=== PATIENT | female | born 1970 | race Caucasian/White ===

== ENCOUNTER 2018-02-14 20:33 | Emergency (ER) | payer SELFPAY ==
[2018-02-14 20:48] VITALS: BP 168/94; PULSE 105; TEMP 98.1; BMI 25.0
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
[2018-02-14] MEDS ORDERED: IBUPROFEN 600 MG TABLET (FP) PO ONE ×2 (21:54→21:55)
== END 2018-02-14 22:16 | disposition home or self-care (01) ==
LOC: JERFT 20:33
PROC: 2W3RX1Z Immobilization of Left Lower Leg using Splint (ICD-10-PCS; principal; 2018-02-14)
DX: M25.562 Pain in left knee (principal); W23.0XXA Caught, crushed, jammed, or pinched between moving objects, initial encounter; Y93.89 Activity, other specified; Y92.9 Unspecified place or not applicable; F17.210 Nicotine dependence, cigarettes, uncomplicated
CPT/HCPCS: 73562-TC-LT-FY; 99281-25

== ENCOUNTER 2019-03-11 13:50 | Emergency (ER) | payer OTHER ==
[2019-03-11 13:54] VITALS: BMI 27.4
--- NOTE | 2019-03-11 14:31 | PDOC ---
History of Present Illness - General Chief Complaint: Cold Symptoms Stated Complaint: COLD SYMPTOMS Time Seen by Provider: 03/11/19 13:56 History Source: Patient Exam Limitations: No Limitations - History of Present Illness Initial Comments: 03/11/19 14:26 Patient is a 48-year-old female who presents to the ED with complaint of 12 days of flulike symptoms. She states she has nasal congestion, body aches, cough, intermittent fevers with a T-max of 104F. She denies any shortness of breath. The patient is a smoker. She denies any past medical history. She has tried Tylenol, Excedrin, TheraFlu without much relief. She denies any known sick contacts. Past History - Past Medical History Allergies/Adverse Reactions: Allergies Allergy/AdvReac Type Severity Reaction Status Date / Time No Known Allergies Allergy Verified 03/11/19 13:54 Home Medications: Ambulatory Orders Ibuprofen [Motrin -] 600 mg PO TID PRN #21 tablet 03/11/19 COPD: No - Psycho Social/Smoking Cessation Hx Smoking History: Current every day smoker Have you smoked in the past 12 months: No Information on smoking cessation initiated: No Hx Alcohol Use: No Drug/Substance Use Hx: No Review of Systems - Review of Systems Comments:: 03/11/19 14:28 - Review of Systems Able to Perform ROS?: Yes Constitutional: No: Loss of Appetite, Night Sweats, Weakness; + intermittent fevers, + chills HEENTM: No: Eye Pain, Vision changes, Ear Pain, , Throat Swelling, Mouth Pain, Difficulty Swallowing; + Throat Pain Respiratory: No: , Shortness of Breath, Wheezing; + Sputum Production, +Cough Cardiac (ROS): No: Chest Pain, Chest Tightness, Palpitations, Irregular Heart Beat, Edema ABD/GI: No: Nausea, Vomiting, Abdominal Pain, Diarrhea Musculoskeletal: No: Back Pain, Joint Pain, Muscle Weakness, Neck Pain; + Muscle aches Integumentary: No: Lesions, Rash Neurological: No: Headache, Numbness, Tingling, Weakness, Speech Difficulties *Physical Exam - Vital Signs Last Vital Signs Temp Pulse Resp BP Pulse Ox 97.5 F L 80 18 174/87 H 99 03/11/19 13:52 03/11/19 13:52 03/11/19 13:52 03/11/19 13:52 03/11/19 13:52 - Physical Exam 03/11/19 14:31 - Physical Exam General Appearance: Nourished, Appropriately Dressed; Mild Distress HEENT: EOMI, Normal Voice, TMs Normal, Hearing Grossly Normal, No TM Bulging. No Muffled/Hoarse voice, No Tonsillar Exudate, No TM Dullness, No TM Erythema; There is moderate pharyngeal and tonsillar erythema without exudates. Neck: Supple, No Lymphadenopathy (R), No Lymphadenopathy (L), No Rigidity, No Decreased range of motion Respiratory/Chest: No Respiratory Distress, No Accessory Muscle Use; There is rhonchi apprecaited to the right base Cardiovascular: Regular Rhythm, Regular Rate, S1, S2 Gastrointestinal/Abdominal: Normal Bowel Sounds, Soft. Non-tender Musculoskeletal: Normal Inspection. No Decreased Range of Motion Extremity: Normal Capillary Refill, Normal Inspection Integumentary: Normal Color, Dry. No Rash Neurologic: computer game programmer II-XII NML intact, Fully Oriented, Alert, Normal Mood/Affect, Normal Response ED Treatment Course - ADDITIONAL ORDERS Additional order review: 03/11/19 14:46 Laboratory Tests 03/11/19 03/11/19 14:11 14:11 Influenza A (Rapid) Negative Influenza B (Rapid) Negative Group A Strep Rapid Negative - RADIOLOGY Radiology Studies Ordered: Category Date Time Status CHEST PA & LAT [RAD] Stat Radiology 03/11/19 14:12 Ordered Medical Decision Making - Medical Decision Making I have made the patient aware that her strep and flu swabs are negative. The patient has a URI. I have ordered some Motrin for her while in the ED and we will send Motrin to her pharmacy as well. She should follow-up with her primary doctor within 1 to 2 days for repeat evaluation. She understands and agrees with treatment plan as she is stable for discharge. 03/11/19 14:50 Discharge - Discharge Information Problems reviewed: Yes Clinical Impression/Diagnosis: URI, acute Condition: Stable Disposition: HOME - Additional Discharge Information Prescriptions: Ibuprofen [Motrin -] 600 mg PO TID PRN #21 tablet PRN Reason: Fever - Follow up/Referral Referrals: Jo Martinez [Primary Care Provider] - - Patient Discharge Instructions Patient Printed Discharge Instructions: DI for Viral Upper Respiratory Infection -- Adult Additional Instructions: Get plenty of rest and drink plenty of fluids. Take Tylenol or Motrin for fever and body aches. Follow-up with your primary doctor within 1 to 2 days for repeat evaluation. Return for high fevers, shaking chills, profuse vomiting or any other worsening symptoms. - Post Discharge Activity Work/Back to School Note: Back to Work
[2019-03-11] MEDS ORDERED: IBUPROFEN 600 MG TABLET (FP) PO ONE ×2 (14:45→14:56)
[2019-03-11 14:50] VITALS: BP 136/89; PULSE 83; TEMP 97.8
== END 2019-03-11 15:02 | disposition home or self-care (01) ==
LOC: JERFT 13:50
DX: J06.9 Acute upper respiratory infection, unspecified (principal); B97.89 Other viral agents as the cause of diseases classified elsewhere; F17.210 Nicotine dependence, cigarettes, uncomplicated
CPT/HCPCS: 71046-TC-FY; 87070; 87804; 87880; 99282-25

== ENCOUNTER 2020-07-10 19:47 | Emergency (ER) | payer OTHER ==
[2020-07-10 20:03] VITALS: BP 156/84; PULSE 90; TEMP 98.5; BMI 27.4
[2020-07-10] MEDS ORDERED: LIDOCAINE PATCH REMOVAL MC SCH (22:00)
[2020-07-10] MEDS ORDERED: ACETAMINOPHEN 500 MG TABLET (FP) PO ONE (23:59)
[2020-07-10] MEDS ORDERED: LIDOCAINE 5% TOPICAL PATCH TP ONE (23:59)
[2020-07-11] MEDS ORDERED: METHOCARBAMOL 750 MG TAB PO ONE (00:07)
[2020-07-11] MEDS ORDERED: METHOCARBAMOL 500 MG TABLET ONE (00:17)
[2020-07-11] MEDS ORDERED: LIDOCAINE 5% TOPICAL PATCH ONE (00:17)
[2020-07-11] MEDS ORDERED: ACETAMINOPHEN 500 MG TABLET (FP) ONE (00:20)
== END 2020-07-11 01:56 | disposition home or self-care (01) ==
LOC: JER 19:47
DX: M54.5 Low back pain (principal)
CPT/HCPCS: 72070-TC-FY; 72100-TC-FY; 99284-25

== ENCOUNTER 2021-03-02 04:43 | Day surgery (SDC) | payer OTHER ==
[2021-02-26 11:44] VITALS: BMI 29.3
[2021-03-02] MEDS ORDERED: ISOSULFAN BLUE 50 MG/5 ML VIAL SQ ONE (10:51)
[2021-03-02] MEDS ORDERED: LIDOCAINE HCL 1%, 10 MG/ML (20ML VIAL) ONE (10:52)
[2021-03-02] MEDS ORDERED: oxyCODONE HCL 5 MG TABLET PO PRN (11:29)
[2021-03-02] MEDS ORDERED: PROMETHAZINE HCL 25 MG/1 ML VIAL IVPUSH PRN (11:29)
[2021-03-02] MEDS ORDERED: ONDANSETRON 4 MG/2 ML VIAL IVPUSH PRN (11:29)
[2021-03-02] MEDS ORDERED: LACTATED RINGERS SOLUTION 1,000 ML IV SCH (11:30)
[2021-03-02] MEDS ORDERED: PROPOFOL 20 ML ONE ×3 (12:21→13:58)
[2021-03-02] MEDS ORDERED: MIDAZOLAM HCL 2 MG/2 ML SINGLE DOSE VIAL ONE (12:21)
[2021-03-02] MEDS ORDERED: GLYCOPYRROLATE 0.2 MG/1 ML VIAL ONE (12:21)
[2021-03-02] MEDS ORDERED: LIDOCAINE HCL/PF 2% SDV 5ML VIAL ONE (12:30)
[2021-03-02] MEDS ORDERED: SODIUM CHLORIDE 0.9% P/F 10 ML VIAL IJ ONE (12:31)
[2021-03-02] MEDS ORDERED: ceFAZolin SODIUM 1 GM VIAL ONE (12:31)
[2021-03-02] MEDS ORDERED: ceFAZolin SODIUM 1 GM VIAL IVPB ONE (12:35)
[2021-03-02] MEDS ORDERED: DEXAMETHASONE SOD PHOSPHATE 4 MG/1 ML VIAL ONE ×2 (12:37)
[2021-03-02] MEDS ORDERED: ONDANSETRON 4 MG/2 ML VIAL ONE (12:37)
[2021-03-02] MEDS ORDERED: KETOROLAC TROMETHAMINE 30 MG/1 ML VIAL ONE (13:04)
[2021-03-02] MEDS ORDERED: METOPROLOL TARTRATE 5 MG/5 ML VIAL ONE (13:11)
[2021-03-02] MEDS ORDERED: oxyCODONE HCL 5 MG TABLET ONE (17:51)
[2021-03-02] MEDS ORDERED: oxyCODONE HCL 5 MG TABLET PO ONE (17:52)
[2021-03-02 18:39] VITALS: BP 128/69; PULSE 74; TEMP 97.7
== END 2021-03-02 18:40 | disposition home or self-care (01) ==
LOC: JASU-SURG 04:43
PROVIDERS: ATTEND Surgery
PROC: 0HBT0ZZ Excision of Right Breast, Open Approach (ICD-10-PCS; principal; 2021-03-02 11:00)
DX: C50.311 Malignant neoplasm of lower-inner quadrant of right female breast (principal); C77.3 Secondary and unspecified malignant neoplasm of axilla and upper limb lymph nodes; Z17.0 Estrogen receptor positive status [ER+]
CPT/HCPCS: 78195-TC; 81025; 88307-TC; 94760; A9541

== ENCOUNTER 2021-05-07 07:01 | Day surgery (SDC) | payer OTHER ==
[2021-05-07 12:49] LABS: BASO % 0.8 % (0-2.0); EOS % 4.5 % (0-4.5); HEMOGLOBIN 12.1 GM/dL (10.7-15.3); LYMPH % 20.3 % (8-40); MCH 28.9 pg (25.7-33.7); MCHC 32.6 g/dl (32.0-36.0); MEAN CELL VOLUME 88.6 fl (80-96); MEAN PLT VOLUME 8.5 fl (7.5-11.1); MONO % 8.3 % (3.8-10.2); NEUT % 66.1 % (42.8-82.8); PLATELET COUNT 287 10^3/uL (134-434); RBC 4.18 M/mm3 (3.60-5.2); RDW 14.2 % (11.6-15.6); WHITE BLOOD COUNT 6.4 K/mm3 (4.0-10.0)
[2021-05-07] MEDS ORDERED: LIDOCAINE 1% P/F 10 MG/ML VIAL ID ONE (13:00)
[2021-05-07] MEDS ORDERED: FERRIC CARBOXYMALTOSE 750 MG in SODIUM CHLORIDE 250 ML IVPB ONE (13:00)
[2021-05-07] MEDS ORDERED: GOSERELIN ACETATE 3.6 MG IMPLANT SYRINGE SQ ONE (13:00)
[2021-05-07 13:02] VITALS: TEMP 98.6
[2021-05-07 13:17] LABS: CALCIUM 9.1 mg/dL (8.5-10.1)
[2021-05-07 13:18] LABS: ALBUMIN 3.8 g/dl (3.4-5.0); BLOOD UREA NITROGEN 15.6 mg/dL (7-18)
[2021-05-07 13:21] LABS: CREATININE 0.7 mg/dL (0.55-1.3)
[2021-05-07 13:22] LABS: BILIRUBIN,TOTAL 0.3 mg/dL (0.2-1); TOT PROT 7.1 g/dl (6.4-8.2)
[2021-05-07 16:56] VITALS: BP 131/79; PULSE 81
== END 2021-05-07 14:45 | disposition home or self-care (01) ==
LOC: JONCCHEMO 07:01
PROVIDERS: ATTEND Internal Medicine Hematology & Oncology
DX: Z51.11 Encounter for antineoplastic chemotherapy (principal); C50.811 Malignant neoplasm of overlapping sites of right female breast; C77.9 Secondary and unspecified malignant neoplasm of lymph node, unspecified
CPT/HCPCS: 36415; 80053; 84703; 85025; 96402; J1439; J9202

== ENCOUNTER 2021-05-14 08:06 | Day surgery (SDC) | payer OTHER ==
[2021-05-14] MEDS ORDERED: DEXAMETHASONE INJECTION 10 MG, DIPHENHYDRAMINE 25 MG in SODIUM CHLORIDE 100 ML IVPB ONE (09:30)
[2021-05-14] MEDS ORDERED: FAMOTIDINE 20 MG/50 ML IVPB 20 MG/50 ML MG IVPB ONE (09:30)
[2021-05-14 10:54] LABS: BASO % 0.6 % (0-2.0); EOS % 3.2 % (0-4.5); HEMATOCRIT 37.5 % (32.4-45.2); HEMOGLOBIN 12.4 GM/dL (10.7-15.3); LYMPH % 15.4 % (8-40); MCH 29.6 pg (25.7-33.7); MEAN CELL VOLUME 89.7 fl (80-96); MEAN PLT VOLUME 8.5 fl (7.5-11.1); NEUT % 72.8 % (42.8-82.8); PLATELET COUNT 254 10^3/uL (134-434); RBC 4.18 M/mm3 (3.60-5.2); RDW 14.8 % (11.6-15.6); WHITE BLOOD COUNT 7.5 K/mm3 (4.0-10.0)
[2021-05-14] MEDS ORDERED: FERRIC CARBOXYMALTOSE 750 MG in SODIUM CHLORIDE 250 ML IVPB ONE (11:15)
[2021-05-14 11:17] LABS: CALCIUM 8.8 mg/dL (8.5-10.1)
[2021-05-14 11:18] LABS: ALBUMIN 3.6 g/dl (3.4-5.0); BLOOD UREA NITROGEN 17.4 mg/dL (7-18)
[2021-05-14 11:21] LABS: CREATININE 0.7 mg/dL (0.55-1.3)
[2021-05-14 11:23] LABS: BILIRUBIN,TOTAL 0.2 mg/dL (0.2-1)
[2021-05-14 16:51] VITALS: PULSE 85; TEMP 98.2
[2021-05-14 16:58] VITALS: BP 118/80
== END 2021-05-14 12:05 | disposition home or self-care (01) ==
LOC: JONCCHEMO 08:06
PROVIDERS: ATTEND Internal Medicine Hematology & Oncology
PROC: 3E033GC Introduction of Other Therapeutic Substance into Peripheral Vein, Percutaneous Approach (ICD-10-PCS; principal; 2021-05-14)
DX: C50.911 Malignant neoplasm of unspecified site of right female breast (principal); C77.9 Secondary and unspecified malignant neoplasm of lymph node, unspecified; Z76.89 Persons encountering health services in other specified circumstances
CPT/HCPCS: 36415; 80053; 85025; 96365; J1439

== ENCOUNTER 2021-05-20 04:37 | Day surgery (SDC) | payer OTHER ==
[2021-05-18 11:55] VITALS: BMI 31.4
[2021-05-20] MEDS ORDERED: MIDAZOLAM HCL 2 MG/2 ML SINGLE DOSE VIAL ONE ×2 (10:46→11:18)
[2021-05-20] MEDS ORDERED: SODIUM CHLORIDE 500 ML IV SCH (10:50)
[2021-05-20] MEDS ORDERED: MIDAZOLAM HCL 2 MG/2 ML SINGLE DOSE VIAL IVPUSH ONE ×3 (11:10→11:30)
[2021-05-20] MEDS ORDERED: ACETAMINOPHEN 1000 MG/100 ML BAG IVPB ONE (13:05)
[2021-05-20 14:10] VITALS: BP 121/68; PULSE 81; TEMP 98.1
== END 2021-05-20 14:20 | disposition home or self-care (01) ==
LOC: JRADIR 04:37
PROVIDERS: ATTEND Internal Medicine Hematology & Oncology
PROC: 02HV33Z Insertion of Infusion Device into Superior Vena Cava, Percutaneous Approach (ICD-10-PCS; principal; 2021-05-20)
PROC: B518ZZA Fluoroscopy of Superior Vena Cava, Guidance (ICD-10-PCS; 2021-05-20)
DX: C50.911 Malignant neoplasm of unspecified site of right female breast (principal)
CPT/HCPCS: 36561; C1788; 81025

== ENCOUNTER 2021-05-21 07:58 | Day surgery (SDC) | payer OTHER ==
[2021-05-21] MEDS ORDERED: FAMOTIDINE 20 MG/50 ML IVPB 20 MG/50 ML MG IVPB ONE (10:30)
[2021-05-21] MEDS ORDERED: DEXAMETHASONE SODIUM PHOSPHATE 10 MG, DIPHENHYDRAMINE 25 MG in SODIUM CHLORIDE 100 ML IVPB ONE (10:30)
[2021-05-21] MEDS ORDERED: PACLITAXEL IVPB ONE (11:00)
[2021-05-21] MEDS ORDERED: SODIUM CHLORIDE IVPB ONE (11:00)
[2021-05-21 11:33] LABS: BASO % 1.1 % (0-2.0); EOS % 5.4 % (0-4.5); HEMATOCRIT 37.1 % (32.4-45.2); HEMOGLOBIN 12.3 GM/dL (10.7-15.3); LYMPH % 20.6 % (8-40); MCH 29.8 pg (25.7-33.7); MCHC 33.3 g/dl (32.0-36.0); MEAN CELL VOLUME 89.7 fl (80-96); MEAN PLT VOLUME 8.4 fl (7.5-11.1); MONO % 7.5 % (3.8-10.2); NEUT % 65.4 % (42.8-82.8); PLATELET COUNT 248 10^3/uL (134-434); RBC 4.14 M/mm3 (3.60-5.2); RDW 14.8 % (11.6-15.6); WHITE BLOOD COUNT 5.2 K/mm3 (4.0-10.0)
[2021-05-21] MEDS ORDERED: ONDANSETRON 4 MG/2 ML VIAL IVPB ONE (11:43)
[2021-05-21 11:56] LABS: CALCIUM 8.9 mg/dL (8.5-10.1)
[2021-05-21 11:57] LABS: ALBUMIN 3.7 g/dl (3.4-5.0); BLOOD UREA NITROGEN 12.6 mg/dL (7-18)
[2021-05-21 12:00] LABS: CREATININE 0.7 mg/dL (0.55-1.3)
[2021-05-21 12:01] LABS: BILIRUBIN,TOTAL 0.2 mg/dL (0.2-1)
[2021-05-21 12:02] LABS: TOT PROT 6.8 g/dl (6.4-8.2)
[2021-05-21 16:03] VITALS: TEMP 98.1
[2021-05-21] MEDS ORDERED: PORTA CATH FLUSH 10 ML IVPUSH ONE (16:06)
[2021-05-21 17:04] VITALS: BP 142/82; PULSE 87
== END 2021-05-21 17:08 | disposition home or self-care (01) ==
LOC: JONCNONCHE 07:58
PROVIDERS: ATTEND Internal Medicine Hematology & Oncology
DX: Z51.11 Encounter for antineoplastic chemotherapy (principal); C50.911 Malignant neoplasm of unspecified site of right female breast
CPT/HCPCS: 36415; 80053; 85025; 96367; 96413

== ENCOUNTER 2021-05-25 15:15 | Emergency (ER) | payer OTHER ==
[2021-05-25 15:39] VITALS: BP 123/78; PULSE 97; TEMP 97.9; BMI 31.4
[2021-05-25 17:22] LABS: BASO % 0.7 % (0-2.0); EOS % 4.4 % (0-4.5); HEMOGLOBIN 12.2 GM/dL (10.7-15.3); LYMPH % 22.6 % (8-40); MCH 30.5 pg (25.7-33.7); MCHC 33.9 g/dl (32.0-36.0); MEAN CELL VOLUME 89.8 fl (80-96); MEAN PLT VOLUME 8.8 fl (7.5-11.1); MONO % 3.4 % (3.8-10.2); NEUT % 68.9 % (42.8-82.8); PLATELET COUNT 250 10^3/uL (134-434); RBC 4.01 M/mm3 (3.60-5.2); RDW 15.2 % (11.6-15.6); WHITE BLOOD COUNT 5.6 K/mm3 (4.0-10.0)
[2021-05-25 17:28] LABS: PROTHROMBIN TIME (PATIENT) 11.5 SEC (9.7-13.0)
[2021-05-25 17:31] LABS: ACTIVATED PTT 28.4 SECONDS (25.2-36.5)
[2021-05-25 17:46] LABS: ALBUMIN 3.7 g/dl (3.4-5.0); BLOOD UREA NITROGEN 16.2 mg/dL (7-18); MAGNESIUM 2.1 mg/dL (1.8-2.4)
[2021-05-25 17:49] LABS: CREATININE 0.7 mg/dL (0.55-1.3)
[2021-05-25 17:51] LABS: BILIRUBIN,TOTAL 0.4 mg/dL (0.2-1); TOT PROT 6.6 g/dl (6.4-8.2)
[2021-05-25] MEDS ORDERED: SODIUM CHLORIDE 0.9% 500 ML INFUS.BAG IV ONE (18:05)
== END 2021-05-25 20:33 | disposition home or self-care (01) ==
LOC: JER 15:15
DX: R06.02 Shortness of breath (principal)
CPT/HCPCS: 36415; 71275-TC; 80053; 83735; 84484; 84703; 85025; 85610; 85730; 86850; 86900; 86901; 93005; 93010; 99285-25; Q9967

== ENCOUNTER 2021-05-28 06:57 | Day surgery (SDC) | payer OTHER ==
[2021-05-28] MEDS ORDERED: DEXAMETHASONE SODIUM PHOSPHATE 10 MG, DIPHENHYDRAMINE 25 MG in SODIUM CHLORIDE 100 ML IVPB ONE (10:30)
[2021-05-28] MEDS ORDERED: FAMOTIDINE 20 MG/50 ML IVPB 20 MG/50 ML MG IVPB ONE (10:30)
[2021-05-28 10:34] LABS: BASO % 0.9 % (0-2.0); EOS % 5.5 % (0-4.5); HEMATOCRIT 33.3 % (32.4-45.2); HEMOGLOBIN 11.5 GM/dL (10.7-15.3); LYMPH % 26.6 % (8-40); MCH 31.2 pg (25.7-33.7); MCHC 34.7 g/dl (32.0-36.0); MEAN CELL VOLUME 89.9 fl (80-96); MEAN PLT VOLUME 7.9 fl (7.5-11.1); MONO % 7.1 % (3.8-10.2); NEUT % 59.9 % (42.8-82.8); PLATELET COUNT 260 10^3/uL (134-434); RDW 15.6 % (11.6-15.6); WHITE BLOOD COUNT 5.2 K/mm3 (4.0-10.0)
[2021-05-28 10:52] LABS: ALBUMIN 3.4 g/dl (3.4-5.0); BLOOD UREA NITROGEN 18.4 mg/dL (7-18); CALCIUM 8.6 mg/dL (8.5-10.1)
[2021-05-28 10:56] LABS: CREATININE 0.8 mg/dL (0.55-1.3)
[2021-05-28 10:57] LABS: BILIRUBIN,TOTAL 0.2 mg/dL (0.2-1); TOT PROT 6.3 g/dl (6.4-8.2)
[2021-05-28] MEDS ORDERED: SODIUM CHLORIDE IVPB ONE (11:00)
[2021-05-28] MEDS ORDERED: PACLITAXEL IVPB ONE (11:00)
[2021-05-28 16:12] VITALS: TEMP 98.2
[2021-05-28 16:49] VITALS: BP 128/70; PULSE 97
== END 2021-05-28 15:30 | disposition home or self-care (01) ==
LOC: JONCCHEMO 06:57
PROVIDERS: ATTEND Internal Medicine Hematology & Oncology
DX: Z51.11 Encounter for antineoplastic chemotherapy (principal); C50.919 Malignant neoplasm of unspecified site of unspecified female breast
CPT/HCPCS: 36415; 80053; 85025; 96367; 96413

== ENCOUNTER 2021-06-04 07:23 | Day surgery (SDC) | payer OTHER ==
[2021-06-04] MEDS ORDERED: DEXAMETHASONE SODIUM PHOSPHATE 10 MG, DIPHENHYDRAMINE 25 MG in SODIUM CHLORIDE 100 ML IVPB ONE (10:30)
[2021-06-04] MEDS ORDERED: FAMOTIDINE 20 MG/50 ML IVPB 20 MG/50 ML MG IVPB ONE (10:30)
[2021-06-04] MEDS ORDERED: SODIUM CHLORIDE IVPB ONE (11:00)
[2021-06-04] MEDS ORDERED: PACLITAXEL IVPB ONE (11:00)
[2021-06-04 13:06] LABS: BASO % 1.2 % (0-2.0); EOS % 3.9 % (0-4.5); HEMATOCRIT 36.9 % (32.4-45.2); HEMOGLOBIN 12.6 GM/dL (10.7-15.3); LYMPH % 27.7 % (8-40); MCH 30.7 pg (25.7-33.7); MCHC 34.3 g/dl (32.0-36.0); MEAN CELL VOLUME 89.5 fl (80-96); MEAN PLT VOLUME 7.7 fl (7.5-11.1); MONO % 8.9 % (3.8-10.2); NEUT % 58.3 % (42.8-82.8); PLATELET COUNT 308 10^3/uL (134-434); RBC 4.12 M/mm3 (3.60-5.2); RDW 16.1 % (11.6-15.6); WHITE BLOOD COUNT 4.1 K/mm3 (4.0-10.0)
[2021-06-04 13:24] LABS: ALBUMIN 3.9 g/dl (3.4-5.0); BLOOD UREA NITROGEN 17.8 mg/dL (7-18); CALCIUM 9.3 mg/dL (8.5-10.1)
[2021-06-04 13:27] LABS: CREATININE 0.9 mg/dL (0.55-1.3)
[2021-06-04 13:29] LABS: BILIRUBIN,TOTAL 0.4 mg/dL (0.2-1); TOT PROT 7.2 g/dl (6.4-8.2)
[2021-06-04] MEDS ORDERED: PORTA CATH FLUSH 10 ML IVPUSH ONE (15:29)
[2021-06-04 15:30] VITALS: TEMP 98.3
[2021-06-04 16:19] VITALS: BP 144/84; PULSE 103
== END 2021-06-04 16:35 | disposition home or self-care (01) ==
LOC: JONCCHEMO 07:23
PROVIDERS: ATTEND Internal Medicine Hematology & Oncology
PROC: 3E04305 Introduction of Other Antineoplastic into Central Vein, Percutaneous Approach (ICD-10-PCS; principal; 2021-06-04)
PROC: 3E043GC Introduction of Other Therapeutic Substance into Central Vein, Percutaneous Approach (ICD-10-PCS; 2021-06-04)
DX: Z51.11 Encounter for antineoplastic chemotherapy (principal); C50.919 Malignant neoplasm of unspecified site of unspecified female breast
CPT/HCPCS: 36415; 80053; 85025; 96367; 96413

== ENCOUNTER 2021-06-11 08:27 | Day surgery (SDC) | payer OTHER ==
[2021-06-11] MEDS ORDERED: FAMOTIDINE 20 MG/50 ML IVPB 20 MG/50 ML MG IVPB ONE (09:30)
[2021-06-11] MEDS ORDERED: DEXAMETHASONE SODIUM PHOSPHATE 4 MG, DIPHENHYDRAMINE 25 MG in SODIUM CHLORIDE 100 ML IVPB ONE (09:30)
[2021-06-11 09:48] LABS: BASO % 0.6 % (0-2.0); EOS % 3.3 % (0-4.5); HEMATOCRIT 36.4 % (32.4-45.2); HEMOGLOBIN 12.2 GM/dL (10.7-15.3); LYMPH % 25.7 % (8-40); MCH 30.5 pg (25.7-33.7); MCHC 33.5 g/dl (32.0-36.0); MEAN PLT VOLUME 8.5 fl (7.5-11.1); MONO % 5.4 % (3.8-10.2); PLATELET COUNT 289 10^3/uL (134-434); RDW 16.1 % (11.6-15.6); WHITE BLOOD COUNT 4.9 K/mm3 (4.0-10.0)
[2021-06-11] MEDS ORDERED: SODIUM CHLORIDE IVPB ONE (10:00)
[2021-06-11] MEDS ORDERED: PACLITAXEL IVPB ONE (10:00)
[2021-06-11 10:04] LABS: CALCIUM 9.1 mg/dL (8.5-10.1)
[2021-06-11 10:05] LABS: ALBUMIN 3.7 g/dl (3.4-5.0); BLOOD UREA NITROGEN 14.9 mg/dL (7-18)
[2021-06-11 10:08] LABS: CREATININE 0.7 mg/dL (0.55-1.3)
[2021-06-11 10:09] LABS: BILIRUBIN,TOTAL 0.3 mg/dL (0.2-1); TOT PROT 6.8 g/dl (6.4-8.2)
[2021-06-11 10:24] VITALS: TEMP 98.2
[2021-06-11] MEDS ORDERED: LIDOCAINE HCL 1%, 10 MG/ML (20ML VIAL) ID ONE (10:30)
[2021-06-11] MEDS ORDERED: GOSERELIN ACETATE 3.6 MG IMPLANT SYRINGE SQ ONE (10:30)
[2021-06-11] MEDS ORDERED: PORTA CATH FLUSH 10 ML IVPUSH PRN (12:16)
[2021-06-11 15:07] VITALS: BP 132/80; PULSE 98
== END 2021-06-11 13:30 | disposition home or self-care (01) ==
LOC: JONCCHEMO 08:27
PROVIDERS: ATTEND Internal Medicine Hematology & Oncology
DX: Z51.11 Encounter for antineoplastic chemotherapy (principal); C50.911 Malignant neoplasm of unspecified site of right female breast; C77.9 Secondary and unspecified malignant neoplasm of lymph node, unspecified; C79.2 Secondary malignant neoplasm of skin
CPT/HCPCS: 36415; 80053; 85025; 96367; 96402; 96413; J9202

== ENCOUNTER 2021-06-18 06:53 | Day surgery (SDC) | payer OTHER ==
[2021-06-18] MEDS ORDERED: DEXAMETHASONE SODIUM PHOSPHATE 4 MG, DIPHENHYDRAMINE 25 MG in SODIUM CHLORIDE 100 ML IVPB ONE (09:30)
[2021-06-18] MEDS ORDERED: FAMOTIDINE 20 MG/50 ML IVPB 20 MG/50 ML MG IVPB ONE (09:30)
[2021-06-18] MEDS ORDERED: PACLITAXEL IVPB ONE (10:00)
[2021-06-18] MEDS ORDERED: SODIUM CHLORIDE IVPB ONE (10:00)
[2021-06-18 10:56] LABS: BASO % 0.9 % (0-2.0); EOS % 2.5 % (0-4.5); HEMATOCRIT 36.2 % (32.4-45.2); HEMOGLOBIN 12.3 GM/dL (10.7-15.3); MCH 30.9 pg (25.7-33.7); MEAN CELL VOLUME 90.9 fl (80-96); MONO % 8.4 % (3.8-10.2); NEUT % 66.2 % (42.8-82.8); PLATELET COUNT 287 10^3/uL (134-434); RBC 3.98 M/mm3 (3.60-5.2); RDW 16.8 % (11.6-15.6); WHITE BLOOD COUNT 4.8 K/mm3 (4.0-10.0)
[2021-06-18 11:18] LABS: BLOOD UREA NITROGEN 19.2 mg/dL (7-18); CALCIUM 9.1 mg/dL (8.5-10.1)
[2021-06-18 11:19] LABS: ALBUMIN 3.7 g/dl (3.4-5.0)
[2021-06-18 11:21] LABS: BILIRUBIN,DIRECT 0.1 mg/dL (0.0-0.2); CREATININE 0.8 mg/dL (0.55-1.3)
[2021-06-18 11:23] LABS: BILIRUBIN,TOTAL 0.2 mg/dL (0.2-1)
[2021-06-18 17:09] VITALS: BP 126/77; PULSE 97; TEMP 98.2
== END 2021-06-18 14:30 | disposition home or self-care (01) ==
LOC: JONCCHEMO 06:53
PROVIDERS: ATTEND Internal Medicine Hematology & Oncology
DX: Z51.11 Encounter for antineoplastic chemotherapy (principal); C50.911 Malignant neoplasm of unspecified site of right female breast; C77.9 Secondary and unspecified malignant neoplasm of lymph node, unspecified; C79.2 Secondary malignant neoplasm of skin
CPT/HCPCS: 36415; 80048; 80076; 83735; 85025; 96367; 96413

== ENCOUNTER 2021-06-25 07:04 | Day surgery (SDC) | payer OTHER ==
[2021-06-25] MEDS ORDERED: FAMOTIDINE 20 MG/50 ML IVPB 20 MG/50 ML MG IVPB ONE (09:30)
[2021-06-25] MEDS ORDERED: DEXAMETHASONE SODIUM PHOSPHATE 4 MG, DIPHENHYDRAMINE 25 MG in SODIUM CHLORIDE 100 ML IVPB ONE (09:30)
[2021-06-25] MEDS ORDERED: PACLITAXEL IVPB ONE (10:00)
[2021-06-25] MEDS ORDERED: SODIUM CHLORIDE IVPB ONE (10:00)
[2021-06-25 10:45] LABS: BASO % 0.8 % (0-2.0); EOS % 2.6 % (0-4.5); HEMATOCRIT 34.9 % (32.4-45.2); HEMOGLOBIN 11.7 GM/dL (10.7-15.3); LYMPH % 20.6 % (8-40); MCH 30.8 pg (25.7-33.7); MCHC 33.5 g/dl (32.0-36.0); MEAN CELL VOLUME 91.8 fl (80-96); MEAN PLT VOLUME 8.4 fl (7.5-11.1); MONO % 5.9 % (3.8-10.2); NEUT % 70.1 % (42.8-82.8); PLATELET COUNT 283 10^3/uL (134-434); RBC 3.81 M/mm3 (3.60-5.2); RDW 16.1 % (11.6-15.6); WHITE BLOOD COUNT 5.6 K/mm3 (4.0-10.0)
[2021-06-25 11:06] LABS: ALBUMIN 3.6 g/dl (3.4-5.0); CALCIUM 9.1 mg/dL (8.5-10.1)
[2021-06-25 11:07] LABS: BLOOD UREA NITROGEN 18.6 mg/dL (7-18)
[2021-06-25 11:09] LABS: CREATININE 0.8 mg/dL (0.55-1.3)
[2021-06-25 11:11] LABS: BILIRUBIN,TOTAL 0.3 mg/dL (0.2-1); TOT PROT 6.6 g/dl (6.4-8.2)
[2021-06-25 18:20] VITALS: TEMP 98.4
[2021-06-25 18:24] VITALS: BP 138/78; PULSE 94
[2021-06-25] MEDS ORDERED: PORTA CATH FLUSH 10 ML IVPUSH PRN (18:26)
== END 2021-06-25 14:30 | disposition home or self-care (01) ==
LOC: JONCCHEMO 07:04
PROVIDERS: ATTEND Internal Medicine Hematology & Oncology
DX: Z51.11 Encounter for antineoplastic chemotherapy (principal); C50.911 Malignant neoplasm of unspecified site of right female breast; C77.9 Secondary and unspecified malignant neoplasm of lymph node, unspecified; C79.2 Secondary malignant neoplasm of skin
CPT/HCPCS: 36415; 80053; 85025; 96367; 96413

== ENCOUNTER 2021-07-02 07:20 | Day surgery (SDC) | payer OTHER ==
[2021-07-02] MEDS ORDERED: DEXAMETHASONE SODIUM PHOSPHATE 4 MG, DIPHENHYDRAMINE 25 MG in SODIUM CHLORIDE 100 ML IVPB ONE (09:30)
[2021-07-02] MEDS ORDERED: FAMOTIDINE 20 MG/50 ML IVPB 20 MG/50 ML MG IVPB ONE (09:30)
[2021-07-02] MEDS ORDERED: PACLITAXEL IVPB ONE (10:00)
[2021-07-02] MEDS ORDERED: SODIUM CHLORIDE IVPB ONE (10:00)
[2021-07-02 10:49] LABS: BASO % 0.7 % (0-2.0); EOS % 2.4 % (0-4.5); HEMATOCRIT 35.9 % (32.4-45.2); HEMOGLOBIN 12.2 GM/dL (10.7-15.3); LYMPH % 17.8 % (8-40); MCH 31.3 pg (25.7-33.7); MEAN CELL VOLUME 92.2 fl (80-96); MEAN PLT VOLUME 8.3 fl (7.5-11.1); MONO % 7.5 % (3.8-10.2); NEUT % 71.6 % (42.8-82.8); PLATELET COUNT 296 10^3/uL (134-434); RBC 3.89 M/mm3 (3.60-5.2); RDW 16.4 % (11.6-15.6); WHITE BLOOD COUNT 5.8 K/mm3 (4.0-10.0)
[2021-07-02 11:09] LABS: ALBUMIN 3.6 g/dl (3.4-5.0); BLOOD UREA NITROGEN 20.1 mg/dL (7-18); CALCIUM 9.2 mg/dL (8.5-10.1)
[2021-07-02 11:13] LABS: CREATININE 0.8 mg/dL (0.55-1.3)
[2021-07-02 11:14] LABS: BILIRUBIN,TOTAL 0.2 mg/dL (0.2-1); TOT PROT 6.7 g/dl (6.4-8.2)
[2021-07-02] MEDS ORDERED: ONDANSETRON 4 MG/2 ML VIAL IVPB ONE (11:48)
[2021-07-02] MEDS ORDERED: ONDANSETRON INJECTION 8 MG in SODIUM CHLORIDE 50 ML IVPB ONE (12:00)
[2021-07-02 17:58] VITALS: TEMP 98.3
[2021-07-02 18:02] VITALS: BP 132/76; PULSE 93
[2021-07-02] MEDS ORDERED: PORTA CATH FLUSH 10 ML IVPUSH PRN (18:02)
== END 2021-07-02 15:30 | disposition home or self-care (01) ==
LOC: JONCCHEMO 07:20
PROVIDERS: ATTEND Internal Medicine Hematology & Oncology
DX: Z51.11 Encounter for antineoplastic chemotherapy (principal); C50.911 Malignant neoplasm of unspecified site of right female breast; C77.9 Secondary and unspecified malignant neoplasm of lymph node, unspecified; C79.2 Secondary malignant neoplasm of skin
CPT/HCPCS: 36415; 80053; 85025; 96367; 96375; 96413; J2405

== ENCOUNTER 2021-07-09 07:09 | Day surgery (SDC) | payer OTHER ==
[2021-07-09] MEDS ORDERED: DEXAMETHASONE SODIUM PHOSPHATE 4 MG, DIPHENHYDRAMINE 25 MG in SODIUM CHLORIDE 100 ML IVPB ONE (10:00)
[2021-07-09] MEDS ORDERED: FAMOTIDINE 20 MG/50 ML IVPB 20 MG/50 ML MG IVPB ONE (10:00)
[2021-07-09 10:17] LABS: BASO % 0.7 % (0-2.0); EOS % 2.1 % (0-4.5); HEMATOCRIT 34.4 % (32.4-45.2); HEMOGLOBIN 11.9 GM/dL (10.7-15.3); LYMPH % 17.5 % (8-40); MCH 31.9 pg (25.7-33.7); MCHC 34.6 g/dl (32.0-36.0); MEAN CELL VOLUME 92.3 fl (80-96); MEAN PLT VOLUME 8.2 fl (7.5-11.1); MONO % 7.4 % (3.8-10.2); NEUT % 72.3 % (42.8-82.8); PLATELET COUNT 282 10^3/uL (134-434); RBC 3.72 M/mm3 (3.60-5.2); RDW 16.5 % (11.6-15.6)
[2021-07-09] MEDS ORDERED: PACLITAXEL IVPB ONE (10:30)
[2021-07-09] MEDS ORDERED: SODIUM CHLORIDE IVPB ONE (10:30)
[2021-07-09 10:40] LABS: CALCIUM 9.3 mg/dL (8.5-10.1)
[2021-07-09 10:41] LABS: ALBUMIN 3.7 g/dl (3.4-5.0); BLOOD UREA NITROGEN 19.9 mg/dL (7-18)
[2021-07-09 10:44] LABS: CREATININE 0.9 mg/dL (0.55-1.3)
[2021-07-09 10:45] LABS: BILIRUBIN,TOTAL 0.2 mg/dL (0.2-1)
[2021-07-09 10:46] LABS: TOT PROT 6.6 g/dl (6.4-8.2)
[2021-07-09] MEDS ORDERED: LIDOCAINE HCL 1%, 10 MG/ML (20ML VIAL) ID ONE (11:15)
[2021-07-09] MEDS ORDERED: GOSERELIN ACETATE 3.6 MG IMPLANT SYRINGE SQ ONE (11:15)
[2021-07-09 16:56] VITALS: BP 132/79; PULSE 89; TEMP 98
[2021-07-09] MEDS ORDERED: PORTA CATH FLUSH 10 ML IVPUSH PRN (16:56)
== END 2021-07-09 14:30 | disposition home or self-care (01) ==
LOC: JONCCHEMO 07:09
PROVIDERS: ATTEND Internal Medicine Hematology & Oncology
DX: Z51.11 Encounter for antineoplastic chemotherapy (principal); C50.911 Malignant neoplasm of unspecified site of right female breast; C77.9 Secondary and unspecified malignant neoplasm of lymph node, unspecified; C79.2 Secondary malignant neoplasm of skin
CPT/HCPCS: 36415; 80053; 85025; 96367; 96402; 96413; J9202

== ENCOUNTER 2021-07-16 06:54 | Day surgery (SDC) | payer OTHER ==
[~2021-07-16 06:54] MED LIST: DEXAMETHASONE SODIUM PHOSPHATE 4 MG, DIPHENHYDRAMINE 25 MG in SODIUM CHLORIDE 100 ML IVPB ONE
[2021-07-16] MEDS ORDERED: DEXAMETHASONE SODIUM PHOSPHATE 4 MG, DIPHENHYDRAMINE 25 MG in SODIUM CHLORIDE 100 ML IVPB ONE (09:30)
[2021-07-16] MEDS ORDERED: FAMOTIDINE IVPB ONE (09:30)
[2021-07-16] MEDS ORDERED: DEXTROSE 5% IVPB ONE (09:30)
[2021-07-16] MEDS ORDERED: WATER IVPB ONE (09:30)
[2021-07-16 09:42] LABS: BASO % 0.6 % (0-2.0); EOS % 2.9 % (0-4.5); HEMATOCRIT 35.9 % (32.4-45.2); HEMOGLOBIN 11.9 GM/dL (10.7-15.3); MCHC 33.2 g/dl (32.0-36.0); MEAN CELL VOLUME 93.4 fl (80-96); MEAN PLT VOLUME 8.4 fl (7.5-11.1); MONO % 6.4 % (3.8-10.2); NEUT % 67.1 % (42.8-82.8); PLATELET COUNT 277 10^3/uL (134-434); RBC 3.84 M/mm3 (3.60-5.2); RDW 16.3 % (11.6-15.6); WHITE BLOOD COUNT 5.9 K/mm3 (4.0-10.0)
[2021-07-16] MEDS ORDERED: SODIUM CHLORIDE IVPB ONE (10:00)
[2021-07-16] MEDS ORDERED: PACLITAXEL IVPB ONE (10:00)
[2021-07-16 10:05] LABS: ALBUMIN 3.5 g/dl (3.4-5.0); BLOOD UREA NITROGEN 20.5 mg/dL (7-18); CALCIUM 9.3 mg/dL (8.5-10.1)
[2021-07-16 10:08] LABS: CREATININE 0.7 mg/dL (0.55-1.3)
[2021-07-16 10:09] LABS: TOT PROT 6.5 g/dl (6.4-8.2)
[2021-07-16 10:10] LABS: BILIRUBIN,TOTAL 0.2 mg/dL (0.2-1)
[2021-07-16] MEDS ORDERED: DEXAMETHASONE SOD PHOSPHATE 10 MG/1 ML VIAL IVPB ONE (10:24)
[2021-07-16] MEDS ORDERED: ONDANSETRON 4 MG/2 ML VIAL IVPB ONE (10:25)
[2021-07-16 10:54] VITALS: TEMP 97.9
[2021-07-16] MEDS ORDERED: [UNRECOGNIZED DRUG - OTHER] IVPUSH ONE (11:15)
[2021-07-16] MEDS ORDERED: DIPHENHYDRAMINE IVPUSH ONE (11:15)
[2021-07-16] MEDS ORDERED: ONDANSETRON IVPUSH ONE (11:15)
[2021-07-16] MEDS ORDERED: DEXAMETHASONE IVPUSH ONE (11:15)
[2021-07-16 15:26] VITALS: BP 133/83; PULSE 91
[2021-07-16] MEDS ORDERED: PORTA CATH FLUSH 10 ML IVPUSH PRN (15:26)
== END 2021-07-16 14:30 | disposition home or self-care (01) ==
LOC: JONCCHEMO 06:54
PROVIDERS: ATTEND Internal Medicine Hematology & Oncology
DX: Z51.11 Encounter for antineoplastic chemotherapy (principal); C50.911 Malignant neoplasm of unspecified site of right female breast; C77.9 Secondary and unspecified malignant neoplasm of lymph node, unspecified; C79.2 Secondary malignant neoplasm of skin
CPT/HCPCS: 36415; 80053; 85025; 96367; 96413; J1100

== ENCOUNTER 2021-07-23 07:53 | Day surgery (SDC) | payer OTHER ==
[2021-07-23] MEDS ORDERED: WATER IVPB ONE (09:30)
[2021-07-23] MEDS ORDERED: DEXAMETHASONE SODIUM PHOSPHATE 10 MG, ONDANSETRON INJECTION 8 MG, DIPHENHYDRAMINE 50 MG... IVPB ONE (09:30)
[2021-07-23] MEDS ORDERED: DEXTROSE 5% IVPB ONE (09:30)
[2021-07-23] MEDS ORDERED: FAMOTIDINE IVPB ONE (09:30)
[2021-07-23] MEDS ORDERED: PACLITAXEL IVPB ONE (10:00)
[2021-07-23] MEDS ORDERED: SODIUM CHLORIDE IVPB ONE (10:00)
[2021-07-23 11:14] LABS: BASO % 0.6 % (0-2.0); HEMATOCRIT 36.8 % (32.4-45.2); HEMOGLOBIN 12.4 GM/dL (10.7-15.3); LYMPH % 18.8 % (8-40); MCH 31.5 pg (25.7-33.7); MCHC 33.7 g/dl (32.0-36.0); MEAN CELL VOLUME 93.5 fl (80-96); MEAN PLT VOLUME 8.3 fl (7.5-11.1); MONO % 6.4 % (3.8-10.2); NEUT % 71.2 % (42.8-82.8); PLATELET COUNT 288 10^3/uL (134-434); RBC 3.94 M/mm3 (3.60-5.2); RDW 16.5 % (11.6-15.6); WHITE BLOOD COUNT 6.6 K/mm3 (4.0-10.0)
[2021-07-23 11:34] LABS: CALCIUM 9.4 mg/dL (8.5-10.1)
[2021-07-23 11:35] LABS: ALBUMIN 3.7 g/dl (3.4-5.0)
[2021-07-23 11:38] LABS: CREATININE 0.8 mg/dL (0.55-1.3)
[2021-07-23 11:40] LABS: BILIRUBIN,TOTAL 0.6 mg/dL (0.2-1); TOT PROT 6.8 g/dl (6.4-8.2)
[2021-07-23 14:35] VITALS: BP 136/78; PULSE 94
[2021-07-23 16:53] VITALS: TEMP 98.2
[2021-07-23] MEDS ORDERED: PORTA CATH FLUSH 10 ML IVPUSH PRN (16:53)
== END 2021-07-23 15:00 | disposition home or self-care (01) ==
LOC: JONCCHEMO 07:53
PROVIDERS: ATTEND Internal Medicine Hematology & Oncology
DX: Z51.11 Encounter for antineoplastic chemotherapy (principal); C50.911 Malignant neoplasm of unspecified site of right female breast; C77.9 Secondary and unspecified malignant neoplasm of lymph node, unspecified; C79.2 Secondary malignant neoplasm of skin
CPT/HCPCS: 36415; 80053; 85025; 96367; 96413; J2405

== ENCOUNTER 2021-07-30 06:55 | Day surgery (SDC) | payer OTHER ==
[2021-07-30] MEDS ORDERED: FAMOTIDINE 20 MG/50 ML IVPB 20 MG/50 ML MG IVPB ONE (09:30)
[2021-07-30] MEDS ORDERED: DEXAMETHASONE SODIUM PHOSPHATE 10 MG, ONDANSETRON INJECTION 8 MG, DIPHENHYDRAMINE 50 MG... IVPB ONE (09:30)
[2021-07-30] MEDS ORDERED: PACLITAXEL IVPB ONE (10:00)
[2021-07-30] MEDS ORDERED: SODIUM CHLORIDE IVPB ONE (10:00)
[2021-07-30 11:42] LABS: BASO % 0.5 % (0-2.0); EOS % 2.4 % (0-4.5); HEMATOCRIT 36.8 % (32.4-45.2); HEMOGLOBIN 12.2 GM/dL (10.7-15.3); LYMPH % 17.9 % (8-40); MCH 31.6 pg (25.7-33.7); MCHC 33.2 g/dl (32.0-36.0); MEAN CELL VOLUME 95.2 fl (80-96); MEAN PLT VOLUME 8.7 fl (7.5-11.1); MONO % 5.8 % (3.8-10.2); NEUT % 73.4 % (42.8-82.8); PLATELET COUNT 286 10^3/uL (134-434); RBC 3.87 M/mm3 (3.60-5.2); RDW 16.5 % (11.6-15.6); WHITE BLOOD COUNT 6.2 K/mm3 (4.0-10.0)
[2021-07-30 12:22] LABS: ALBUMIN 3.6 g/dl (3.4-5.0); BLOOD UREA NITROGEN 19.3 mg/dL (7-18); CALCIUM 9.2 mg/dL (8.5-10.1)
[2021-07-30 12:25] LABS: CREATININE 0.7 mg/dL (0.55-1.3)
[2021-07-30 12:27] LABS: BILIRUBIN,TOTAL 0.3 mg/dL (0.2-1); TOT PROT 6.5 g/dl (6.4-8.2)
[2021-07-30 16:47] VITALS: TEMP 98.2
[2021-07-30 17:25] VITALS: BP 132/79; PULSE 99
[2021-07-30] MEDS ORDERED: PORTA CATH FLUSH 10 ML IVPUSH PRN (17:25)
== END 2021-07-30 15:30 | disposition home or self-care (01) ==
LOC: JONCCHEMO 06:55
PROVIDERS: ATTEND Internal Medicine Hematology & Oncology
DX: Z51.11 Encounter for antineoplastic chemotherapy (principal); C50.911 Malignant neoplasm of unspecified site of right female breast; C77.9 Secondary and unspecified malignant neoplasm of lymph node, unspecified; C79.2 Secondary malignant neoplasm of skin
CPT/HCPCS: 36415; 80053; 85025; 96367; 96413; J2405

== ENCOUNTER 2021-08-06 08:23 | Day surgery (SDC) | payer OTHER ==
[2021-08-06] MEDS ORDERED: FAMOTIDINE 20 MG/50 ML IVPB 20 MG/50 ML MG IVPB ONE (09:30)
[2021-08-06] MEDS ORDERED: DEXAMETHASONE SODIUM PHOSPHATE 10 MG, ONDANSETRON INJECTION 8 MG, DIPHENHYDRAMINE 50 MG... IVPB ONE (09:30)
[2021-08-06] MEDS ORDERED: PACLITAXEL IVPB ONE (10:00)
[2021-08-06] MEDS ORDERED: SODIUM CHLORIDE IVPB ONE (10:00)
[2021-08-06 10:53] LABS: BASO % 0.5 % (0-2.0); EOS % 2.2 % (0-4.5); HEMATOCRIT 34.2 % (32.4-45.2); HEMOGLOBIN 11.7 GM/dL (10.7-15.3); LYMPH % 19.1 % (8-40); MCH 32.4 pg (25.7-33.7); MCHC 34.2 g/dl (32.0-36.0); MEAN CELL VOLUME 94.8 fl (80-96); MEAN PLT VOLUME 8.7 fl (7.5-11.1); MONO % 6.4 % (3.8-10.2); NEUT % 71.8 % (42.8-82.8); PLATELET COUNT 266 10^3/uL (134-434); RBC 3.61 M/mm3 (3.60-5.2); RDW 15.9 % (11.6-15.6); WHITE BLOOD COUNT 5.6 K/mm3 (4.0-10.0)
[2021-08-06 11:16] LABS: ALBUMIN 3.6 g/dl (3.4-5.0); BLOOD UREA NITROGEN 19.2 mg/dL (7-18); CALCIUM 9.1 mg/dL (8.5-10.1)
[2021-08-06 11:19] LABS: CREATININE 0.6 mg/dL (0.55-1.3)
[2021-08-06 11:21] LABS: BILIRUBIN,TOTAL 0.2 mg/dL (0.2-1); TOT PROT 6.2 g/dl (6.4-8.2)
[2021-08-06] MEDS ORDERED: PROCHLORPERAZINE MALEATE 5 MG TABLET PO ONE (15:05)
[2021-08-06] MEDS ORDERED: LIDOCAINE HCL 1%, 10 MG/ML (20ML VIAL) ID ONE (16:00)
[2021-08-06] MEDS ORDERED: GOSERELIN ACETATE 3.6 MG IMPLANT SYRINGE SQ ONE (16:00)
[2021-08-06] MEDS ORDERED: PORTA CATH FLUSH 10 ML IVPUSH PRN (16:01)
[2021-08-06 16:20] VITALS: BP 132/75; PULSE 90; TEMP 98.4
== END 2021-08-06 16:30 | disposition home or self-care (01) ==
LOC: JONCCHEMO 08:23
PROVIDERS: ATTEND Internal Medicine Hematology & Oncology
PROC: 3E04305 Introduction of Other Antineoplastic into Central Vein, Percutaneous Approach (ICD-10-PCS; principal; 2021-08-06)
PROC: 3E043GC Introduction of Other Therapeutic Substance into Central Vein, Percutaneous Approach (ICD-10-PCS; 2021-08-06)
PROC: 3E01305 Introduction of Other Antineoplastic into Subcutaneous Tissue, Percutaneous Approach (ICD-10-PCS; 2021-08-06)
DX: Z51.11 Encounter for antineoplastic chemotherapy (principal); C50.911 Malignant neoplasm of unspecified site of right female breast; C77.9 Secondary and unspecified malignant neoplasm of lymph node, unspecified; C79.2 Secondary malignant neoplasm of skin
CPT/HCPCS: 36415; 80053; 85025; 96367; 96402; 96413; J2405; J9202

== ENCOUNTER 2021-08-20 08:53 | Day surgery (SDC) | payer OTHER ==
[2021-08-20] MEDS ORDERED: PALONOSETRON HCL 0.25 MG/5 ML VIAL IVPUSH ONE (10:00)
[2021-08-20] MEDS ORDERED: DEXAMETHASONE SODIUM PHOSPHATE 10 MG in SODIUM CHLORIDE 50 ML IVPB ONE (10:00)
[2021-08-20] MEDS ORDERED: FOSAPREPITANT DIMEGLUMINE 150 MG in SODIUM CHLORIDE 145 ML IVPB ONE (10:00)
[2021-08-20 10:03] LABS: BASO % 0.9 % (0-2.0); EOS % 3.4 % (0-4.5); HEMATOCRIT 35.5 % (32.4-45.2); HEMOGLOBIN 12.2 GM/dL (10.7-15.3); LYMPH % 20.6 % (8-40); MCH 32.1 pg (25.7-33.7); MCHC 34.2 g/dl (32.0-36.0); MEAN CELL VOLUME 93.7 fl (80-96); MEAN PLT VOLUME 8.3 fl (7.5-11.1); NEUT % 66.1 % (42.8-82.8); PLATELET COUNT 249 10^3/uL (134-434); RBC 3.79 M/mm3 (3.60-5.2); RDW 14.4 % (11.6-15.6); WHITE BLOOD COUNT 5.5 K/mm3 (4.0-10.0)
[2021-08-20] MEDS ORDERED: SODIUM CHLORIDE 250 ML IV STA (10:10)
[2021-08-20 10:21] LABS: CALCIUM 9.4 mg/dL (8.5-10.1)
[2021-08-20 10:22] LABS: ALBUMIN 3.9 g/dl (3.4-5.0); BLOOD UREA NITROGEN 27.2 mg/dL (7-18)
[2021-08-20 10:25] LABS: CREATININE 0.8 mg/dL (0.55-1.3)
[2021-08-20 10:27] LABS: BILIRUBIN,TOTAL 0.5 mg/dL (0.2-1); TOT PROT 6.5 g/dl (6.4-8.2)
[2021-08-20] MEDS ORDERED: DOXOrubicin HCL 50 MG/25 ML VIAL IV ONE (10:30)
[2021-08-20] MEDS ORDERED: SODIUM CHLORIDE IVPB ONE (11:00)
[2021-08-20] MEDS ORDERED: CYCLOPHOSPHAMIDE IVPB ONE (11:00)
[2021-08-20 18:19] VITALS: BP 134/73; PULSE 86; TEMP 97.9
[2021-08-20] MEDS ORDERED: PORTA CATH FLUSH 10 ML IVPUSH PRN (18:19)
== END 2021-08-20 14:25 | disposition home or self-care (01) ==
LOC: JONCCHEMO 08:53
PROVIDERS: ATTEND Internal Medicine Hematology & Oncology
DX: Z51.11 Encounter for antineoplastic chemotherapy (principal); C50.911 Malignant neoplasm of unspecified site of right female breast; C77.9 Secondary and unspecified malignant neoplasm of lymph node, unspecified; C79.2 Secondary malignant neoplasm of skin
CPT/HCPCS: 36415; 80053; 85025; 96361; 96367; 96375; 96411; 96413; J1453; J2469; J9070

== ENCOUNTER 2021-08-21 07:13 | Day surgery (SDC) | payer OTHER ==
[2021-08-21 17:11] VITALS: BP 121/74; PULSE 90; TEMP 98
[2021-08-21] MEDS: PEGFILGRASTIM-CBQV (UDENYCA) 6 MG/0.6 ML SYRINGE SQ ONE ×2 (17:14→17:15)
== END 2021-08-21 17:30 | disposition home or self-care (01) ==
LOC: JONCCHEMO 07:13
PROVIDERS: ATTEND Internal Medicine Hematology & Oncology
PROC: 3E013GC Introduction of Other Therapeutic Substance into Subcutaneous Tissue, Percutaneous Approach (ICD-10-PCS; principal; 2021-08-21)
DX: C50.911 Malignant neoplasm of unspecified site of right female breast (principal); C77.9 Secondary and unspecified malignant neoplasm of lymph node, unspecified; C79.2 Secondary malignant neoplasm of skin; Z76.89 Persons encountering health services in other specified circumstances
CPT/HCPCS: 96372; Q5111

== ENCOUNTER 2021-09-03 06:39 | Day surgery (SDC) | payer OTHER ==
[2021-09-03 09:50] LABS: HEMATOCRIT 33.8 % (32.4-45.2); HEMOGLOBIN 11.4 GM/dL (10.7-15.3); MCH 32.1 pg (25.7-33.7); MCHC 33.8 g/dl (32.0-36.0); MEAN CELL VOLUME 94.9 fl (80-96); MEAN PLT VOLUME 8.4 fl (7.5-11.1); PLATELET COUNT 244 10^3/uL (134-434); RBC 3.56 M/mm3 (3.60-5.2); RDW 14.4 % (11.6-15.6); WHITE BLOOD COUNT 6.3 K/mm3 (4.0-10.0)
[2021-09-03] MEDS ORDERED: DEXAMETHASONE SODIUM PHOSPHATE 10 MG in SODIUM CHLORIDE 50 ML IVPB ONE (10:00)
[2021-09-03] MEDS ORDERED: FOSAPREPITANT DIMEGLUMINE 150 MG in SODIUM CHLORIDE 145 ML IVPB ONE (10:00)
[2021-09-03] MEDS ORDERED: PALONOSETRON HCL 0.25 MG/5 ML VIAL IVPUSH ONE (10:00)
[2021-09-03 10:02] LABS: CALCIUM 8.9 mg/dL (8.5-10.1)
[2021-09-03 10:03] LABS: ALBUMIN 3.6 g/dl (3.4-5.0); BLOOD UREA NITROGEN 16.1 mg/dL (7-18)
[2021-09-03 10:06] LABS: CREATININE 0.6 mg/dL (0.55-1.3)
[2021-09-03 10:08] LABS: BILIRUBIN,TOTAL 0.2 mg/dL (0.2-1); TOT PROT 6.2 g/dl (6.4-8.2)
[2021-09-03] MEDS ORDERED: SODIUM CHLORIDE 250 ML IV STA (10:17)
[2021-09-03] MEDS ORDERED: DOXOrubicin HCL 50 MG/25 ML VIAL IV ONE (10:30)
[2021-09-03] MEDS ORDERED: CYCLOPHOSPHAMIDE INJECTION 1,200 MG in SODIUM CHLORIDE 250 ML IVPB ONE (11:00)
[2021-09-03 11:20] LABS: ANISOCYTOSIS 2+; MACROCYTOSIS 0; OVALOCYTE 1+
[2021-09-03] MEDS ORDERED: LIDOCAINE 1% P/F 10 MG/ML VIAL ID ONE (14:00)
[2021-09-03] MEDS ORDERED: GOSERELIN ACETATE 3.6 MG IMPLANT SYRINGE SQ ONE (14:00)
[2021-09-03 18:07] VITALS: BP 131/78; PULSE 90; TEMP 98.2
[2021-09-03] MEDS ORDERED: PORTA CATH FLUSH 10 ML IVPUSH PRN (18:07)
== END 2021-09-03 14:35 | disposition home or self-care (01) ==
LOC: JONCCHEMO 06:39
PROVIDERS: ATTEND Internal Medicine Hematology & Oncology
PROC: 3E04305 Introduction of Other Antineoplastic into Central Vein, Percutaneous Approach (ICD-10-PCS; principal; 2021-09-03)
PROC: 3E043GC Introduction of Other Therapeutic Substance into Central Vein, Percutaneous Approach (ICD-10-PCS; 2021-09-03)
PROC: 3E0437Z Introduction of Electrolytic and Water Balance Substance into Central Vein, Percutaneous Approach (ICD-10-PCS; 2021-09-03)
PROC: 3E01305 Introduction of Other Antineoplastic into Subcutaneous Tissue, Percutaneous Approach (ICD-10-PCS; 2021-09-03)
DX: Z51.11 Encounter for antineoplastic chemotherapy (principal); C50.911 Malignant neoplasm of unspecified site of right female breast; C77.9 Secondary and unspecified malignant neoplasm of lymph node, unspecified
CPT/HCPCS: 36415; 80053; 85025; 96361; 96367; 96375; 96401; 96402; 96413; J1453; J2469; J9070; J9202

== ENCOUNTER 2021-09-04 14:34 | Day surgery (SDC) | payer OTHER ==
[2021-09-04 14:47] VITALS: BP 122/77; PULSE 94; TEMP 98.3
[2021-09-04] MEDS ORDERED: PEGFILGRASTIM-CBQV (UDENYCA) 6 MG/0.6 ML SYRINGE SQ ONE (15:00)
== END 2021-09-04 15:00 | disposition home or self-care (01) ==
LOC: JONCCHEMO 14:34
PROVIDERS: ATTEND Internal Medicine Hematology & Oncology
PROC: 3E013GC Introduction of Other Therapeutic Substance into Subcutaneous Tissue, Percutaneous Approach (ICD-10-PCS; principal; 2021-09-04)
DX: Z76.89 Persons encountering health services in other specified circumstances (principal); C50.911 Malignant neoplasm of unspecified site of right female breast; C77.9 Secondary and unspecified malignant neoplasm of lymph node, unspecified
CPT/HCPCS: 96372; Q5111

== ENCOUNTER 2021-09-16 23:30 | Inpatient (IN) | payer OTHER ==
[2021-09-17] MEDS ORDERED: PIPERACILLIN/TAZOBACTAM 4.5 GM VIAL IVPB ONE (02:19)
[2021-09-17] MEDS ORDERED: VANCOMYCIN 1,000 MG in DEXTROSE 5%-WATER - 250 ML IVPB ONE (02:19)
[2021-09-17] MEDS ORDERED: PIPERACILLIN/TAZOB 4.5 GM 4.5 GM/100 ML BAG IVPB ONE (02:33)
[2021-09-17] MEDS ORDERED: SODIUM CHLORIDE 1,000 ML IV STA (02:41)
[2021-09-17] MEDS ORDERED: ACETAMINOPHEN 1000 MG/100 ML BAG IVPB ONE (02:41)
[2021-09-17 02:43] LABS: HEMATOCRIT 32.6 % (32.4-45.2); HEMOGLOBIN 11.1 GM/dL (10.7-15.3); MCH 32.4 pg (25.7-33.7); MCHC 34.1 g/dl (32.0-36.0); MEAN CELL VOLUME 95.2 fl (80-96); MEAN PLT VOLUME 8.2 fl (7.5-11.1); PLATELET COUNT 221 10^3/uL (134-434); RBC 3.43 M/mm3 (3.60-5.2); RDW 14.9 % (11.6-15.6); WHITE BLOOD COUNT 10.7 K/mm3 (4.0-10.0)
[2021-09-17] MEDS ORDERED: ACETAMINOPHEN INJECTION 100 ML IVPB ONE (02:58)
[2021-09-17 02:59] LABS: INR 1.04 (0.83-1.09); VENOUS BASE EXCESS -0.5 mmol/L (-2-2); VENOUS O2 SATURATION 93.4 % (70-80); VENOUS PCO2 34.5 mmHg (38-52); VENOUS PH 7.446 (7.310-7.410)
[2021-09-17 03:04] LABS: ALBUMIN 3.8 g/dl (3.4-5.0); BLOOD UREA NITROGEN 12.9 mg/dL (7-18)
[2021-09-17 03:07] LABS: CREATININE 0.7 mg/dL (0.55-1.3)
[2021-09-17 03:09] LABS: BILIRUBIN,TOTAL 0.2 mg/dL (0.2-1); TOT PROT 6.8 g/dl (6.4-8.2)
[2021-09-17] MEDS ORDERED: VANCOMYCIN 1 GRAM (PRE-DOCKED) 1,000 MG/250 ML BAG IVPB ONE ×2 (04:13→15:55)
[2021-09-17 05:33] LABS: ANISOCYTOSIS 1+; MACROCYTOSIS 1+
[2021-09-17 07:50] LABS: HEMOGLOBIN 9.9 GM/dL (10.7-15.3); MCH 32.5 pg (25.7-33.7); MCHC 34.2 g/dl (32.0-36.0); MEAN PLT VOLUME 8.7 fl (7.5-11.1); PLATELET COUNT 195 10^3/uL (134-434); RBC 3.06 M/mm3 (3.60-5.2); RDW 14.9 % (11.6-15.6); WHITE BLOOD COUNT 7.7 K/mm3 (4.0-10.0)
[2021-09-17 08:00] LABS: CALCIUM 8.2 mg/dL (8.5-10.1)
[2021-09-17 08:02] LABS: ALBUMIN 3.2 g/dl (3.4-5.0); BLOOD UREA NITROGEN 10.6 mg/dL (7-18)
[2021-09-17 08:03] LABS: MAGNESIUM 1.7 mg/dL (1.8-2.4)
[2021-09-17 08:05] LABS: CREATININE 0.7 mg/dL (0.55-1.3); PHOSPHOROUS 4.1 mg/dL (2.5-4.9)
[2021-09-17 08:08] LABS: BILIRUBIN,TOTAL 0.3 mg/dL (0.2-1); TOT PROT 5.6 g/dl (6.4-8.2)
[2021-09-17 08:55] LABS: ANISOCYTOSIS 0; HELMET CELLS 0; HOWELL-JOLLY BODIES 0; MACROCYTOSIS 0; OVALOCYTE 0; ROULEAU 0; SICKELED CELLS 0; TARGET CELLS 0; TEAR DROP CELLS 0; TOXIC GRANULATION 0
[2021-09-17] MEDS ORDERED: ONDANSETRON 8 MG TABLET (FP) PO ONE ×2 (09:01→23:17)
[2021-09-17] MEDS ORDERED: ENOXAPARIN NA (PORCINE) 40 MG/0.4 ML DISP.SYRIN SQ ONE (09:01)
[2021-09-17] MEDS ORDERED: PROCHLORPERAZINE MALEATE 5 MG TABLET ONE ×2 (09:01→23:16)
[2021-09-17] MEDS ORDERED: valACYclovir HCL 500 MG TABLET (FP) ONE ×2 (09:01→23:16)
[2021-09-17] MEDS ORDERED: PANTOPRAZOLE 40 MG TABLET PO ONE (09:01)
[2021-09-17] MEDS: VENLAFAXINE HCL 75 MG E.R. CAPSULES PO SCH (09:08)
[2021-09-17] MEDS: PROCHLORPERAZINE MALEATE 5 MG TABLET PO SCH ×2 (09:08→23:23)
[2021-09-17] MEDS: ONDANSETRON 8 MG TABLET (FP) PO SCH ×2 (09:09→23:23)
[2021-09-17] MEDS: ENOXAPARIN NA (PORCINE) 40 MG/0.4 ML DISP.SYRIN SQ SCH (09:09)
[2021-09-17] MEDS: PANTOPRAZOLE 40 MG TABLET PO SCH (09:09)
[2021-09-17] MEDS: valACYclovir HCL 500 MG TABLET (FP) PO SCH ×2 (09:09→23:23)
[2021-09-17 09:20] LABS: ERYTHROCYTE SEDIMENTATION RATE 44 mm/hr (0-30)
[2021-09-17 09:42] LABS: URINE APPEARANCE CLEAR; URINE BILIRUBIN NEGATIVE (NEGATIVE); URINE COLOR YELLOW; URINE GLUCOSE (UA) NEGATIVE (NEGATIVE); URINE KETONE NEGATIVE (NEGATIVE); URINE LEUK ESTERASE NEGATIVE (NEGATIVE); URINE NITRITE NEGATIVE (NEGATIVE); URINE PROTEIN NEGATIVE (NEGATIVE); URINE UROBILINOGEN 0.2 mg/dL (0.2-1.0)
[2021-09-17] MEDS ORDERED: PIPERACILLIN/TAZOB 3.375 GM 3.375 GM/50 ML BAG IVPB ONE ×2 (11:25→17:39)
[2021-09-17] MEDS: PIPERACILLIN/TAZOB 3.375 GM 3.375 GM in DEXTROSE 5%-WATER - 50 ML IVPB SCH ×2 (11:42→17:50)
[2021-09-17] MEDS ORDERED: REMDESIVIR 200 MG in SODIUM CHLORIDE 250 ML IVPB ONE (13:00)
[2021-09-17] MEDS: VANCOMYCIN 1 GRAM (PRE-DOCKED) 1,000 MG/250 ML BAG IVPB SCH (16:10)
[2021-09-17] MEDS ORDERED: ACETAMINOPHEN 325 MG TABLET (FP) ONE (17:47)
[2021-09-17] MEDS: ACETAMINOPHEN 325 MG TABLET (FP) PO PRN (17:50)
[2021-09-18] MEDS: PIPERACILLIN/TAZOB 3.375 GM 3.375 GM in DEXTROSE 5%-WATER - 50 ML IVPB SCH ×3 (01:35→17:55)
[2021-09-18] MEDS: VANCOMYCIN 1 GRAM (PRE-DOCKED) 1,000 MG/250 ML BAG IVPB SCH ×2 (03:30→17:55)
[2021-09-18 08:35] LABS: HEMATOCRIT 32.6 % (32.4-45.2); HEMOGLOBIN 11.3 GM/dL (10.7-15.3); MCH 33.2 pg (25.7-33.7); MCHC 34.7 g/dl (32.0-36.0); MEAN CELL VOLUME 95.6 fl (80-96); MEAN PLT VOLUME 8.2 fl (7.5-11.1); PLATELET COUNT 215 10^3/uL (134-434); RBC 3.41 M/mm3 (3.60-5.2); RDW 14.6 % (11.6-15.6); WHITE BLOOD COUNT 6.9 K/mm3 (4.0-10.0)
[2021-09-18] MEDS ORDERED: PIPERACILLIN/TAZOBACTAM 3.375 GM VIAL IVPB ONE ×2 (08:46→17:52)
[2021-09-18] MEDS ORDERED: DEXTROSE 5%-WATER - 50 ML IVPB ONE ×2 (08:46→17:52)
[2021-09-18] MEDS: ACETAMINOPHEN 325 MG TABLET (FP) PO PRN (08:58)
[2021-09-18 09:00] LABS: CALCIUM 9.1 mg/dL (8.5-10.1); MAGNESIUM 2.1 mg/dL (1.8-2.4)
[2021-09-18] MEDS: ENOXAPARIN NA (PORCINE) 40 MG/0.4 ML DISP.SYRIN SQ SCH (09:00)
[2021-09-18 09:01] LABS: BLOOD UREA NITROGEN 10.7 mg/dL (7-18)
[2021-09-18] MEDS: PANTOPRAZOLE 40 MG TABLET PO SCH (09:01)
[2021-09-18 09:04] LABS: CREATININE 0.6 mg/dL (0.55-1.3)
[2021-09-18 09:22] LABS: ANISOCYTOSIS 0; HELMET CELLS 0; HOWELL-JOLLY BODIES 0; MACROCYTOSIS 0; OVALOCYTE 0; ROULEAU 0; SICKELED CELLS 0; TARGET CELLS 0; TEAR DROP CELLS 0; TOXIC GRANULATION 0
[2021-09-18] MEDS: PROCHLORPERAZINE MALEATE 5 MG TABLET PO SCH ×2 (09:24→21:31)
[2021-09-18] MEDS: valACYclovir HCL 500 MG TABLET (FP) PO SCH ×2 (09:24→21:31)
[2021-09-18] MEDS: ONDANSETRON 8 MG TABLET (FP) PO SCH ×2 (09:25→21:32)
[2021-09-18] MEDS: VENLAFAXINE HCL 75 MG E.R. CAPSULES PO SCH (09:25)
[2021-09-18] MEDS ORDERED: LORATADINE 10 MG TABLET PO ONE (20:11)
[2021-09-18] MEDS ORDERED: MAG HYDROX/ALH/SMC/DPHA/LIDO 240 ML MOUTHWASH MM SCH (20:17)
[2021-09-18] MEDS ORDERED: ONDANSETRON 4 MG TABLET PO ONE (21:28)
[2021-09-18] MEDS: SODIUM CHLORIDE NASAL SPRAY 44 ML BOTTLE NS PRN (21:32)
[2021-09-18] MEDS: MAG HYDROX/ALH/SMC/DPHA/LIDO 240 ML MOUTHWASH MM SCH (23:29)
[2021-09-19] MEDS ORDERED: DEXTROSE 5%-WATER - 50 ML IVPB ONE ×3 (01:21→18:23)
[2021-09-19] MEDS ORDERED: PIPERACILLIN/TAZOBACTAM 3.375 GM VIAL IVPB ONE ×3 (01:21→18:22)
[2021-09-19] MEDS: PIPERACILLIN/TAZOB 3.375 GM 3.375 GM in DEXTROSE 5%-WATER - 50 ML IVPB SCH ×3 (01:34→23:31)
[2021-09-19] MEDS ORDERED: PORTA CATH FLUSH 10 ML IVPUSH PRN (01:36)
[2021-09-19] MEDS: VANCOMYCIN 1 GRAM (PRE-DOCKED) 1,000 MG/250 ML BAG IVPB SCH ×2 (03:35→16:57)
[2021-09-19] MEDS: MAG HYDROX/ALH/SMC/DPHA/LIDO 240 ML MOUTHWASH MM SCH ×4 (07:26→23:31)
[2021-09-19 08:59] LABS: HEMATOCRIT 31.7 % (32.4-45.2); HEMOGLOBIN 10.8 GM/dL (10.7-15.3); MCH 32.9 pg (25.7-33.7); MEAN CELL VOLUME 96.9 fl (80-96); MEAN PLT VOLUME 9.2 fl (7.5-11.1); PLATELET COUNT 211 10^3/uL (134-434); RBC 3.27 M/mm3 (3.60-5.2); RDW 14.9 % (11.6-15.6); WHITE BLOOD COUNT 5.7 K/mm3 (4.0-10.0)
[2021-09-19 09:19] LABS: BLOOD UREA NITROGEN 15.2 mg/dL (7-18); CALCIUM 8.6 mg/dL (8.5-10.1)
[2021-09-19 09:20] LABS: ALBUMIN 3.4 g/dl (3.4-5.0); MAGNESIUM 2.1 mg/dL (1.8-2.4)
[2021-09-19 09:23] LABS: CREATININE 0.6 mg/dL (0.55-1.3)
[2021-09-19 09:24] LABS: BILIRUBIN,TOTAL 0.2 mg/dL (0.2-1); TOT PROT 5.9 g/dl (6.4-8.2)
[2021-09-19 09:37] LABS: ANISOCYTOSIS 1+; MACROCYTOSIS 0
[2021-09-19] MEDS: PANTOPRAZOLE 40 MG TABLET PO SCH (09:38)
[2021-09-19] MEDS: PROCHLORPERAZINE MALEATE 5 MG TABLET PO SCH ×2 (09:38→21:18)
[2021-09-19] MEDS: valACYclovir HCL 500 MG TABLET (FP) PO SCH ×2 (09:38→21:18)
[2021-09-19] MEDS: ONDANSETRON 8 MG TABLET (FP) PO SCH ×2 (09:38→21:18)
[2021-09-19] MEDS: VENLAFAXINE HCL 75 MG E.R. CAPSULES PO SCH (09:38)
[2021-09-19] MEDS: LORATADINE 10 MG TABLET PO SCH (09:38)
[2021-09-19] MEDS: ENOXAPARIN NA (PORCINE) 40 MG/0.4 ML DISP.SYRIN SQ SCH (09:38)
[2021-09-19] MEDS: SODIUM CHLORIDE NASAL SPRAY 44 ML BOTTLE NS PRN (09:39)
[2021-09-19] MEDS: ACETAMINOPHEN 325 MG TABLET (FP) PO PRN (09:39)
[2021-09-19 15:15] VITALS: BMI 31.4
[2021-09-19] MEDS ORDERED: REMDESIVIR 100 MG in SODIUM CHLORIDE 250 ML IVPB SCH (20:00)
[2021-09-20] MEDS: MAG HYDROX/ALH/SMC/DPHA/LIDO 240 ML MOUTHWASH MM SCH ×3 (05:14→18:35)
[2021-09-20 08:56] LABS: HEMATOCRIT 33.3 % (32.4-45.2); HEMOGLOBIN 11.3 GM/dL (10.7-15.3); MCH 32.8 pg (25.7-33.7); MEAN CELL VOLUME 96.5 fl (80-96); PLATELET COUNT 253 10^3/uL (134-434); RBC 3.44 M/mm3 (3.60-5.2); RDW 14.7 % (11.6-15.6); WHITE BLOOD COUNT 6.1 K/mm3 (4.0-10.0)
[2021-09-20] MEDS: PANTOPRAZOLE 40 MG TABLET PO SCH (09:04)
[2021-09-20] MEDS: VENLAFAXINE HCL 75 MG E.R. CAPSULES PO SCH (09:05)
[2021-09-20] MEDS: valACYclovir HCL 500 MG TABLET (FP) PO SCH (09:05)
[2021-09-20] MEDS: ENOXAPARIN NA (PORCINE) 40 MG/0.4 ML DISP.SYRIN SQ SCH (09:05)
[2021-09-20] MEDS: PROCHLORPERAZINE MALEATE 5 MG TABLET PO SCH (09:06)
[2021-09-20] MEDS: ONDANSETRON 8 MG TABLET (FP) PO SCH (09:06)
[2021-09-20] MEDS: LORATADINE 10 MG TABLET PO SCH (09:07)
[2021-09-20 09:11] LABS: ALBUMIN 3.3 g/dl (3.4-5.0); BLOOD UREA NITROGEN 12.5 mg/dL (7-18); CALCIUM 8.8 mg/dL (8.5-10.1); MAGNESIUM 2.1 mg/dL (1.8-2.4)
[2021-09-20 09:14] LABS: CREATININE 0.6 mg/dL (0.55-1.3)
[2021-09-20 09:16] LABS: BILIRUBIN,TOTAL 0.2 mg/dL (0.2-1); TOT PROT 6.3 g/dl (6.4-8.2)
[2021-09-20 09:48] LABS: ANISOCYTOSIS 0; HELMET CELLS 0; HOWELL-JOLLY BODIES 0; MACROCYTOSIS 0; OVALOCYTE 0; ROULEAU 0; SICKELED CELLS 0; TARGET CELLS 0; TEAR DROP CELLS 0; TOXIC GRANULATION 0
[2021-09-20] MEDS ORDERED: REMDESIVIR 100 MG in SODIUM CHLORIDE 250 ML IVPB SCH (19:00)
[2021-09-20 21:02] VITALS: BP 134/69; PULSE 91; TEMP 98
== END 2021-09-20 21:27 | disposition home or self-care (01) | DRG 137 ==
LOC: JER 23:30 → JERBED 09-17 04:05 → J4S 09-18 00:54
PROVIDERS: ADMIT Hospitalist; ATTEND Internal Medicine
PROC: XW033E5 Introduction of Remdesivir Anti-infective into Peripheral Vein, Percutaneous Approach, New Technology Group 5 (ICD-10-PCS; principal; 2021-09-17)
DX: U07.1 COVID-19 (principal); D84.9 Immunodeficiency, unspecified; C50.911 Malignant neoplasm of unspecified site of right female breast; R00.0 Tachycardia, unspecified
CPT/HCPCS: 0241U-QW; 36415; 71045-TC-FY; 80048; 80053; 81003; 82728; 82803; 83605; 83615; 83735; 84100; 84484; 85025; 85379; 85610; 85651; 85730; 86140; 87040; 87086; 93005; 93010; 99285-25; C9399

== ENCOUNTER 2021-10-01 06:47 | Day surgery (SDC) | payer OTHER ==
[2021-10-01] MEDS ORDERED: FOSAPREPITANT DIMEGLUMINE 150 MG in SODIUM CHLORIDE 145 ML IVPB ONE (09:30)
[2021-10-01] MEDS ORDERED: PALONOSETRON HCL 0.25 MG/5 ML VIAL IVPUSH ONE (09:30)
[2021-10-01] MEDS ORDERED: DEXAMETHASONE SODIUM PHOSPHATE 10 MG in SODIUM CHLORIDE 50 ML IVPB ONE (09:30)
[2021-10-01] MEDS ORDERED: DOXOrubicin HCL 50 MG/25 ML VIAL IV ONE (10:00)
[2021-10-01] MEDS ORDERED: CYCLOPHOSPHAMIDE INJECTION 1,200 MG in SODIUM CHLORIDE 250 ML IVPB ONE (10:30)
[2021-10-01 12:40] LABS: BASO % 1.1 % (0-2.0); EOS % 11.3 % (0-4.5); HEMATOCRIT 35.2 % (32.4-45.2); HEMOGLOBIN 11.9 GM/dL (10.7-15.3); LYMPH % 6.9 % (8-40); MCH 32.6 pg (25.7-33.7); MCHC 33.9 g/dl (32.0-36.0); MEAN CELL VOLUME 96.2 fl (80-96); MEAN PLT VOLUME 8.8 fl (7.5-11.1); MONO % 8.7 % (3.8-10.2); PLATELET COUNT 340 10^3/uL (134-434); RBC 3.66 M/mm3 (3.60-5.2); RDW 14.6 % (11.6-15.6); WHITE BLOOD COUNT 8.8 K/mm3 (4.0-10.0)
[2021-10-01 13:06] LABS: CALCIUM 9.1 mg/dL (8.5-10.1)
[2021-10-01] MEDS ORDERED: ALTEPLASE (CATHFLO) 2 MG/2 ML VIAL CVP ONE (13:06)
[2021-10-01 13:07] LABS: ALBUMIN 3.8 g/dl (3.4-5.0); BLOOD UREA NITROGEN 21.3 mg/dL (7-18)
[2021-10-01 13:10] LABS: CREATININE 0.7 mg/dL (0.55-1.3)
[2021-10-01 13:11] LABS: BILIRUBIN,TOTAL 0.4 mg/dL (0.2-1); TOT PROT 6.8 g/dl (6.4-8.2)
[2021-10-01] MEDS ORDERED: GOSERELIN ACETATE 3.6 MG IMPLANT SYRINGE SQ ONE (17:00)
[2021-10-01 18:27] VITALS: BP 128/75; PULSE 89; RESP 20; TEMP 98.6
[2021-10-01] MEDS ORDERED: PORTA CATH FLUSH 10 ML IVPUSH PRN (18:38)
== END 2021-10-01 17:00 | disposition home or self-care (01) ==
LOC: JONCCHEMO 06:47
PROVIDERS: ATTEND Internal Medicine Hematology & Oncology
DX: Z51.11 Encounter for antineoplastic chemotherapy (principal); C50.911 Malignant neoplasm of unspecified site of right female breast; C77.9 Secondary and unspecified malignant neoplasm of lymph node, unspecified
CPT/HCPCS: 36415; 80053; 85025; 96367; 96375; 96411; 96413; J1453; J2469; J2997; J9070; J9202

== ENCOUNTER 2021-10-02 15:36 | Day surgery (SDC) | payer OTHER ==
[2021-10-02] MEDS ORDERED: PEGFILGRASTIM-CBQV (UDENYCA) 6 MG/0.6 ML SYRINGE SQ ONE (16:15)
[2021-10-02] MEDS ORDERED: PEGFILGRASTIM-BMEZ 6 MG/0.6 ML SYRINGE SQ ONE (16:15)
[2021-10-02 18:19] VITALS: BP 146/89; PULSE 90; RESP 18; TEMP 98.2
== END 2021-10-02 16:35 | disposition home or self-care (01) ==
LOC: JONCCHEMO 15:36
PROVIDERS: ATTEND Internal Medicine Hematology & Oncology
PROC: 3E013GC Introduction of Other Therapeutic Substance into Subcutaneous Tissue, Percutaneous Approach (ICD-10-PCS; principal; 2021-10-02)
DX: C50.911 Malignant neoplasm of unspecified site of right female breast (principal); C77.9 Secondary and unspecified malignant neoplasm of lymph node, unspecified; Z76.89 Persons encountering health services in other specified circumstances
CPT/HCPCS: 96372; Q5120

== ENCOUNTER 2021-10-15 07:16 | Day surgery (SDC) | payer OTHER ==
[2021-10-15 09:02] LABS: BASO % 0.9 % (0-2.0); EOS % 3.8 % (0-4.5); HEMATOCRIT 34.4 % (32.4-45.2); HEMOGLOBIN 11.6 GM/dL (10.7-15.3); LYMPH % 14.1 % (8-40); MCH 32.4 pg (25.7-33.7); MCHC 33.8 g/dl (32.0-36.0); MEAN CELL VOLUME 95.9 fl (80-96); MEAN PLT VOLUME 8.4 fl (7.5-11.1); MONO % 13.8 % (3.8-10.2); NEUT % 67.4 % (42.8-82.8); PLATELET COUNT 237 10^3/uL (134-434); RBC 3.59 M/mm3 (3.60-5.2); RDW 14.5 % (11.6-15.6); WHITE BLOOD COUNT 6.9 K/mm3 (4.0-10.0)
[2021-10-15 09:29] LABS: CALCIUM 9.4 mg/dL (8.5-10.1)
[2021-10-15 09:31] LABS: ALBUMIN 3.6 g/dl (3.4-5.0); BLOOD UREA NITROGEN 9.9 mg/dL (7-18); CREATININE 0.7 mg/dL (0.55-1.3)
[2021-10-15 09:33] LABS: BILIRUBIN,TOTAL 0.2 mg/dL (0.2-1); TOT PROT 6.8 g/dl (6.4-8.2)
[2021-10-15] MEDS ORDERED: FOSAPREPITANT DIMEGLUMINE 150 MG in SODIUM CHLORIDE 145 ML IVPB ONE (10:00)
[2021-10-15] MEDS ORDERED: DEXAMETHASONE SODIUM PHOSPHATE 10 MG in SODIUM CHLORIDE 50 ML IVPB ONE (10:00)
[2021-10-15] MEDS ORDERED: PALONOSETRON HCL 0.25 MG/5 ML VIAL IVPUSH ONE (10:00)
[2021-10-15] MEDS ORDERED: DOXOrubicin HCL 50 MG/25 ML VIAL IV ONE (10:30)
[2021-10-15] MEDS ORDERED: [UNRECOGNIZED DRUG - OTHER] IVPB ONE (11:00)
[2021-10-15] MEDS ORDERED: CYCLOPHOSPHAMIDE IVPB ONE (11:00)
[2021-10-15 12:13] VITALS: TEMP 98.6
[2021-10-15 17:09] VITALS: BP 135/82; PULSE 97; RESP 20
[2021-10-15] MEDS ORDERED: PORTA CATH FLUSH 10 ML IVPUSH PRN (17:09)
== END 2021-10-15 13:20 | disposition home or self-care (01) ==
LOC: JONCCHEMO 07:16
PROVIDERS: ATTEND Internal Medicine Hematology & Oncology
DX: Z51.11 Encounter for antineoplastic chemotherapy (principal); C50.911 Malignant neoplasm of unspecified site of right female breast; C77.9 Secondary and unspecified malignant neoplasm of lymph node, unspecified
CPT/HCPCS: 36415; 80053; 85025; 96367; 96375; 96411; 96413; J1453; J2469; J9070

== ENCOUNTER 2021-10-16 07:17 | Day surgery (SDC) | payer OTHER ==
[2021-10-16] MEDS ORDERED: PEGFILGRASTIM-CBQV (UDENYCA) 6 MG/0.6 ML SYRINGE SQ ONE (10:00)
[2021-10-16 12:59] VITALS: BP 113/92; PULSE 92; RESP 18; TEMP 98.7
== END 2021-10-16 13:00 | disposition home or self-care (01) ==
LOC: JONCCHEMO 07:17
PROVIDERS: ATTEND Internal Medicine Hematology & Oncology
PROC: 3E013GC Introduction of Other Therapeutic Substance into Subcutaneous Tissue, Percutaneous Approach (ICD-10-PCS; principal; 2021-10-16)
DX: C50.911 Malignant neoplasm of unspecified site of right female breast (principal); C77.9 Secondary and unspecified malignant neoplasm of lymph node, unspecified; Z76.89 Persons encountering health services in other specified circumstances
CPT/HCPCS: 96372; Q5111

== ENCOUNTER 2022-12-26 11:10 | Emergency (ER) | payer OTHER ==
[2022-12-26 11:13] VITALS: BP 133/71; PULSE 107; RESP 18; TEMP 98.7; BMI 24.2
== END 2022-12-26 14:00 | disposition home or self-care (01) ==
LOC: JER 11:10 → JERFT 11:10
DX: R21 Rash and other nonspecific skin eruption (principal); M79.652 Pain in left thigh; B02.9 Zoster without complications
CPT/HCPCS: 99283-25

== ENCOUNTER → 2023-08-02 | Day surgery (SDC) | payer OTHER | END | disposition home or self-care (01) | LOC: JRADIR 09:17 | PROVIDERS: ATTEND Internal Medicine Hematology & Oncology | PROC: 0JPT0WZ Removal of Totally Implantable Vascular Access Device from Trunk Subcutaneous Tissue and Fascia, Open Approach (ICD-10-PCS; principal; 2023-08-02) | DX: Z45.2 Encounter for adjustment and management of vascular access device (principal) | CPT/HCPCS: 36590; 84703 ==

== ENCOUNTER 2023-08-04 11:21 | Day surgery (SDC) | payer OTHER ==
[~2023-08-04 11:21] MED LIST changes: -DEXAMETHASONE SODIUM PHOSPHATE 4 MG, DIPHENHYDRAMINE 25 MG in SODIUM CHLORIDE 100 ML IVPB ONE; +GOSERELIN ACETATE 3.6 MG IMPLANT SYRINGE SQ ONE
[2023-08-04] MEDS: GOSERELIN ACETATE 3.6 MG IMPLANT SYRINGE SQ ONE (11:29)
[2023-08-04 11:41] VITALS: BP 157/91; PULSE 82; RESP 18; TEMP 98.1
== END 2023-08-04 11:40 | disposition home or self-care (01) ==
LOC: JONCCHEMO 11:21 → J7W 11:22 → JONCCHEMO 11:40
PROVIDERS: ATTEND Internal Medicine Hematology & Oncology
DX: Z51.11 Encounter for antineoplastic chemotherapy (principal); C50.811 Malignant neoplasm of overlapping sites of right female breast
CPT/HCPCS: 96402; J9202

== ENCOUNTER 2023-09-01 10:17 | Day surgery (SDC) | payer OTHER ==
[2023-09-01 10:54] LABS: BASO % 0.7 % (0-2.0); EOS % 4.4 % (0-4.5); HEMOGLOBIN 12.6 GM/dL (10.7-15.3); LYMPH % 19.8 % (8-40); MCH 31.8 pg (25.7-33.7); MCHC 34.1 g/dl (32.0-36.0); MEAN CELL VOLUME 93.2 fl (80-96); MONO % 8.6 % (3.8-10.2); NEUT % 66.5 % (42.8-82.8); PLATELET COUNT 239 10^3/uL (134-434); RBC 3.97 M/mm3 (3.60-5.2); RDW 13.5 % (11.6-15.6); WHITE BLOOD COUNT 5.5 K/mm3 (4.0-10.0)
[2023-09-01] MEDS: GOSERELIN ACETATE 3.6 MG IMPLANT SYRINGE SQ ONE (11:02)
[2023-09-01 11:19] LABS: CALCIUM 9.1 mg/dL (8.5-10.1)
[2023-09-01 11:20] LABS: ALBUMIN 3.6 g/dl (3.4-5.0); MAGNESIUM 1.9 mg/dL (1.8-2.4)
[2023-09-01 11:22] LABS: BILIRUBIN,DIRECT 0.1 mg/dL (0.0-0.2); CREATININE 0.7 mg/dL (0.55-1.3)
[2023-09-01 11:24] LABS: BILIRUBIN,TOTAL 0.3 mg/dL (0.2-1); TOT PROT 7.1 g/dl (6.4-8.2)
[2023-09-01 11:28] LABS: BLOOD UREA NITROGEN 19.4 mg/dL (7-18)
[2023-09-01 11:31] VITALS: BP 140/93; PULSE 86; RESP 18; TEMP 98.4
== END 2023-09-01 11:15 | disposition home or self-care (01) ==
LOC: JONCCHEMO 10:17 → J7W 10:18 → JONCCHEMO 11:15
PROVIDERS: ATTEND Internal Medicine Hematology & Oncology
DX: Z51.11 Encounter for antineoplastic chemotherapy (principal); C50.811 Malignant neoplasm of overlapping sites of right female breast
CPT/HCPCS: 36415; 80048; 80076; 83735; 85025; 96402; J9202

== ENCOUNTER 2023-09-30 10:07 | Day surgery (SDC) | payer OTHER ==
[2023-09-30] MEDS: GOSERELIN ACETATE 3.6 MG IMPLANT SYRINGE SQ ONE (10:14)
[2023-09-30 12:56] VITALS: BP 132/95; PULSE 94; RESP 20; TEMP 97.5
== END 2023-09-30 10:35 | disposition home or self-care (01) ==
LOC: JONCCHEMO 10:07 → J7W 10:14 → JONCCHEMO 10:35
PROVIDERS: ATTEND Internal Medicine Hematology & Oncology
DX: Z51.11 Encounter for antineoplastic chemotherapy (principal); C50.811 Malignant neoplasm of overlapping sites of right female breast
CPT/HCPCS: 96402; J9202

== ENCOUNTER 2023-10-28 12:05 | Day surgery (SDC) | payer OTHER ==
[2023-10-28] MEDS: GOSERELIN ACETATE 3.6 MG IMPLANT SYRINGE SQ ONE (12:12)
[2023-10-28 15:33] VITALS: BP 157/78; PULSE 100; RESP 20; TEMP 98.4
== END 2023-10-28 12:40 | disposition home or self-care (01) ==
LOC: JONCCHEMO 12:05 → J7W 12:05 → JONCCHEMO 12:40
PROVIDERS: ATTEND Internal Medicine Hematology & Oncology
DX: Z51.11 Encounter for antineoplastic chemotherapy (principal); C50.811 Malignant neoplasm of overlapping sites of right female breast
CPT/HCPCS: 96402; J9202

== ENCOUNTER 2023-11-25 15:21 | Day surgery (SDC) | payer OTHER ==
[2023-11-25] MEDS: GOSERELIN ACETATE 3.6 MG IMPLANT SYRINGE SQ ONE (15:32)
[2023-11-25 17:30] VITALS: BP 127/79; PULSE 97; RESP 20; TEMP 98.3
== END 2023-11-25 15:50 | disposition home or self-care (01) ==
LOC: JONCCHEMO 15:21 → J7W 15:21 → JONCCHEMO 15:50
PROVIDERS: ATTEND Internal Medicine Hematology & Oncology
DX: C50.811 Malignant neoplasm of overlapping sites of right female breast (principal)
CPT/HCPCS: 96402; J9202

== ENCOUNTER → 2023-12-23 11:40 | Day surgery (SDC) | payer OTHER ==
[2023-12-23] MEDS: GOSERELIN ACETATE 3.6 MG IMPLANT SYRINGE SQ ONE (11:33)
[2023-12-23 17:43] VITALS: BP 127/78; PULSE 105; RESP 20; TEMP 98.3
== END | disposition home or self-care (01) ==
LOC: JONCCHEMO 11:40 → J7W 11:40
PROVIDERS: ATTEND Internal Medicine Hematology & Oncology
DX: Z51.11 Encounter for antineoplastic chemotherapy (principal); C50.811 Malignant neoplasm of overlapping sites of right female breast
CPT/HCPCS: 96372; 96402; J9202

== ENCOUNTER 2024-01-20 15:35 | Day surgery (SDC) | payer OTHER ==
[2024-01-20] MEDS: GOSERELIN ACETATE 3.6 MG IMPLANT SYRINGE SQ ONE (16:47)
[2024-01-20 18:37] VITALS: PULSE 68; RESP 20; TEMP 98.2
[2024-01-20 18:38] VITALS: BP 108/63
== END 2024-01-20 17:00 | disposition home or self-care (01) ==
LOC: JONCCHEMO 15:35 → J7W 15:36 → JONCCHEMO 17:00
PROVIDERS: ATTEND Internal Medicine Hematology & Oncology
DX: Z51.11 Encounter for antineoplastic chemotherapy (principal); C50.911 Malignant neoplasm of unspecified site of right female breast
CPT/HCPCS: 96402; J9202

== ENCOUNTER 2024-02-23 15:56 | Day surgery (SDC) | payer OTHER ==
[2024-02-23] MEDS: GOSERELIN ACETATE 3.6 MG IMPLANT SYRINGE SQ ONE (16:07)
[2024-02-23 17:07] VITALS: BP 152/93; PULSE 90; RESP 20; TEMP 97.8
[2024-02-23 17:10] LABS: BASO % 0.8 % (0-2.0); EOS % 5.1 % (0-4.5); HEMATOCRIT 40.7 % (32.4-45.2); HEMOGLOBIN 13.4 GM/dL (10.7-15.3); LYMPH % 15.6 % (8-40); MCHC 32.9 g/dl (32.0-36.0); MEAN PLT VOLUME 8.7 fl (7.5-11.1); MONO % 8.4 % (3.8-10.2); NEUT % 70.1 % (42.8-82.8); PLATELET COUNT 301 10^3/uL (134-434); RBC 4.34 M/mm3 (3.60-5.2); RDW 13.1 % (11.6-15.6); WHITE BLOOD COUNT 7.1 K/mm3 (4.0-10.0)
[2024-02-23 17:38] LABS: CHLORIDE 106 mmol/L (98-107); POTASSIUM 3.9 mmol/L (3.5-5.1); SODIUM 141 mmol/L (136-145)
[2024-02-23 17:40] LABS: ALBUMIN 3.8 g/dl (3.4-5.0); ANION GAP 7 mmol/L (4-13); CALCIUM 9.7 mg/dL (8.5-10.1); CO2 27 mmol/L (21-32); GLUCOSE,RANDOM 103 mg/dL (74-106)
[2024-02-23 17:41] LABS: BLOOD UREA NITROGEN 15.2 mg/dL (7-18)
[2024-02-23 17:43] LABS: BILIRUBIN,DIRECT 0.1 mg/dL (0.0-0.2); CREATININE 0.8 mg/dL (0.55-1.3); SGPT/ALT 40 U/L (13-61)
[2024-02-23 17:44] LABS: SGOT/AST 35 U/L (15-37)
[2024-02-23 17:45] LABS: BILIRUBIN,TOTAL 0.3 mg/dL (0.2-1); TOT PROT 7.5 g/dl (6.4-8.2)
[2024-02-23 17:46] LABS: ALK PHOS 89 U/L (45-117)
== END 2024-02-23 16:20 | disposition home or self-care (01) ==
LOC: J7W 15:56 → JONCCHEMO 15:56
PROVIDERS: ATTEND Internal Medicine Hematology & Oncology
DX: Z51.11 Encounter for antineoplastic chemotherapy (principal); C50.811 Malignant neoplasm of overlapping sites of right female breast
CPT/HCPCS: 36415; 80048; 80076; 85025; 96402; J9202

== ENCOUNTER 2024-03-23 16:20 | Day surgery (SDC) | payer OTHER ==
[2024-03-23] MEDS: GOSERELIN ACETATE 3.6 MG IMPLANT SYRINGE SQ ONE (16:35)
[2024-03-23 19:08] VITALS: BP 131/73; PULSE 107; RESP 131; TEMP 98.3
== END 2024-03-23 17:00 | disposition home or self-care (01) ==
LOC: J7W 16:20 → JONCCHEMO 16:20
PROVIDERS: ATTEND Internal Medicine Hematology & Oncology
DX: Z51.11 Encounter for antineoplastic chemotherapy (principal); C50.811 Malignant neoplasm of overlapping sites of right female breast
CPT/HCPCS: 96402; J9202

== ENCOUNTER 2024-04-19 10:27 | Day surgery (SDC) | payer OTHER ==
[2024-04-19] MEDS: GOSERELIN ACETATE 3.6 MG IMPLANT SYRINGE SQ ONE (10:24)
[2024-04-19 16:48] VITALS: BP 113/77; PULSE 96; RESP 20; TEMP 98.1
== END 2024-04-19 10:35 | disposition home or self-care (01) ==
LOC: JONCCHEMO 10:27 → J7W 10:28 → JONCCHEMO 10:35
PROVIDERS: ATTEND Internal Medicine Hematology & Oncology
DX: Z51.11 Encounter for antineoplastic chemotherapy (principal); C50.811 Malignant neoplasm of overlapping sites of right female breast; Z17.0 Estrogen receptor positive status [ER+]
CPT/HCPCS: 96402; J9202

== ENCOUNTER 2024-05-18 13:18 | Day surgery (SDC) | payer OTHER ==
[2024-05-18 13:39] VITALS: BP 125/79; PULSE 106; RESP 20; TEMP 98.3
[2024-05-18] MEDS: GOSERELIN ACETATE 3.6 MG IMPLANT SYRINGE SQ ONE ×2 (13:45→13:50)
[2024-05-18 13:49] LABS: BASO % 0.9 % (0-2.0); HEMATOCRIT 40.2 % (32.4-45.2); HEMOGLOBIN 13.5 GM/dL (10.7-15.3); LYMPH % 24.6 % (8-40); MCH 30.8 pg (25.7-33.7); MCHC 33.7 g/dl (32.0-36.0); MEAN CELL VOLUME 91.3 fl (80-96); MONO % 8.5 % (3.8-10.2); PLATELET COUNT 315 10^3/uL (134-434); RDW 13.6 % (11.6-15.6); WHITE BLOOD COUNT 5.4 K/mm3 (4.0-10.0)
[2024-05-18 14:19] LABS: CHLORIDE 107 mmol/L (98-107); POTASSIUM 4.1 mmol/L (3.5-5.1); SODIUM 143 mmol/L (136-145)
[2024-05-18 14:21] LABS: ALBUMIN 3.8 g/dl (3.4-5.0); ANION GAP 8 mmol/L (4-13); BLOOD UREA NITROGEN 13.8 mg/dL (7-18); CALCIUM 9.7 mg/dL (8.5-10.1); CO2 28 mmol/L (21-32); GLUCOSE,RANDOM 103 mg/dL (74-106)
[2024-05-18 14:24] LABS: BILIRUBIN,DIRECT 0.1 mg/dL (0.0-0.2); CREATININE 0.7 mg/dL (0.55-1.3); SGPT/ALT 36 U/L (13-61)
[2024-05-18 14:25] LABS: SGOT/AST 23 U/L (15-37)
[2024-05-18 14:26] LABS: BILIRUBIN,TOTAL 0.4 mg/dL (0.2-1); TOT PROT 7.5 g/dl (6.4-8.2)
[2024-05-18 14:27] LABS: ALK PHOS 88 U/L (45-117)
== END 2024-05-18 14:00 | disposition home or self-care (01) ==
LOC: JONCCHEMO 13:18 → J7W 13:19 → JONCCHEMO 14:00
PROVIDERS: ATTEND Internal Medicine Hematology & Oncology
DX: Z51.11 Encounter for antineoplastic chemotherapy (principal); C50.811 Malignant neoplasm of overlapping sites of right female breast; Z17.0 Estrogen receptor positive status [ER+]
CPT/HCPCS: 36415; 80053; 80076; 85025; 96402; J9202

== ENCOUNTER 2024-06-15 09:00 | Day surgery (SDC) | payer OTHER ==
[2024-06-15] MEDS: GOSERELIN ACETATE 3.6 MG IMPLANT SYRINGE SQ ONE (09:08)
[2024-06-15 10:45] VITALS: BP 154/87; PULSE 98; RESP 20; TEMP 98.4
== END 2024-06-15 09:15 | disposition home or self-care (01) ==
LOC: JONCCHEMO 09:00
PROVIDERS: ATTEND Internal Medicine Hematology & Oncology
DX: Z51.11 Encounter for antineoplastic chemotherapy (principal); C50.811 Malignant neoplasm of overlapping sites of right female breast
CPT/HCPCS: 96402; J9202

== ENCOUNTER 2024-08-17 12:55 | Day surgery (SDC) | payer OTHER ==
[2024-08-17] MEDS: GOSERELIN ACETATE 3.6 MG IMPLANT SYRINGE SQ ONE (13:03)
[2024-08-17 13:59] VITALS: BP 135/91; PULSE 107; RESP 20; TEMP 98.2
== END 2024-08-17 13:30 | disposition home or self-care (01) ==
LOC: JONCCHEMO 12:55 → J7W 13:57
PROVIDERS: ATTEND Internal Medicine Hematology & Oncology
DX: Z51.11 Encounter for antineoplastic chemotherapy (principal); C50.811 Malignant neoplasm of overlapping sites of right female breast
CPT/HCPCS: 96402; J9202

== ENCOUNTER 2024-12-11 11:17 | Day surgery (SDC) | payer OTHER ==
[2024-12-11] MEDS: GOSERELIN ACETATE 3.6 MG IMPLANT SYRINGE SQ ONE (11:37)
[2024-12-11 14:19] VITALS: BP 137/81; PULSE 89; RESP 20; TEMP 98.3
== END 2024-12-11 12:00 | disposition home or self-care (01) ==
LOC: JONCCHEMO 11:17
PROVIDERS: ATTEND Internal Medicine Hematology & Oncology
DX: Z51.11 Encounter for antineoplastic chemotherapy (principal); C50.811 Malignant neoplasm of overlapping sites of right female breast
CPT/HCPCS: 96402; J9202